=== PATIENT | female | born 1970 | race Caucasian/White ===

== ENCOUNTER 2016-06-03 17:08 | Emergency (ER) | payer OTHER ==
[2016-06-03] MEDS ORDERED: Sodium Chloride 0.9% 1000 ML 1,000 ML IV STA (17:47)
[2016-06-03] MEDS ORDERED: Hydromorphone 1 mg/ml Ampule IV ONE ×2 (17:47→19:48)
[2016-06-03] MEDS ORDERED: BENADRYL 50 MG/ML IV ONE (17:47)
[2016-06-03] MEDS ORDERED: BENADRYL 50 MG/ML ONE (17:52)
[2016-06-03] MEDS ORDERED: Hydromorphone 1 mg/ml Ampule ONE ×2 (17:53→19:49)
[2016-06-03] MEDS ORDERED: Sodium Chloride 0.9% 1000 ML 1,000 ML ONE (17:53)
--- NOTE | 2016-06-03 17:53 | ERPHSYRPT ---
- History of Present Illness Time Seen by Provider: 06/03/16 17:42 Source: patient Patient Subjective Stated Complaint: rt lower back pain sicne last . Triage Nursing Assessment: states has radiating rt lower back pain to rt uper buttocks since last . went to [facility] last thrusday and had kub yesterday. same pain with no increase or decrease. denies pain with urination. normal bm today. has hx of kidney stones. normal oral intake. pain worse with movement and better lying flat Physician History: CC: right flank pain Hx: 46 y/o patient of Dr Steven. She has right flank pain. Hx of prior renal stone disease. She has right flank pain, sharp for one week. Saw Dr Steven and had neg KUB, started bactrim and naproxen without relief. States not as has Mirena IUD. No fever, vomiting. Allergies/Adverse Reactions: Penicillins Allergy (Verified 06/03/16 17:33) codeine Adverse Reaction (Verified 06/03/16 17:33) Vomiting Home Medications: Sitagliptin Phos/Metformin HCl [Janumet 50-500 mg Tablet] 1 each PO BID [History] Cyclobenzaprine HCl [Flexeril] 5 mg PO BID 06/03/16 [History] Naproxen 500 mg PO BID 06/03/16 [History] Smz/Tmp Ds Tablet [Bactrim Ds Tablet] 1 udtab PO BID 06/03/16 [History] Hx Tetanus, Diphtheria Vaccination/Date Given: Yes Hx Influenza Vaccination/Date Given: No Hx Pneumococcal Vaccination/Date Given: No Immunizations Up to Date: Yes - Review of Systems Constitutional: No Fever, No Chills Eyes: No Symptoms Ears, Nose, & Throat: No Symptoms Respiratory: No Cough, No Dyspnea Cardiac: No Chest Pain Abdominal/Gastrointestinal: No Abdominal Pain, No Nausea, No Vomiting Genitourinary Symptoms: Flank Pain (right), No Dysuria, No Hematuria Skin: No Rash Neurological: No Headache All Other Systems: Reviewed and Negative - Past Medical History Pertinent Past Medical History: Yes Cardiac History: Hypertension Endocrine Medical History: Diabetes Type II GI Medical History: Other History: Other Other Medical History: kidney stones - Past Surgical History Past Surgical History: Yes Female Surgical History: Section - Social History Smoking Status: Never smoker Exposure to second hand smoke: Yes Drug Use: none Patient Lives Alone: No - Female History Hx Last Menstrual Period: 3 weeks Hx Now: No - Nursing Vital Signs Nursing Vital Signs: Initial Vital Signs Temperature 98.4 F Temperature Source Oral Pulse Rate 69 Respiratory Rate 16 Blood Pressure [Right Arm] 127/60 Pain Intensity 1 - Physical Exam General Appearance: alert Eye Exam: PERRL/EOMI Ears, Nose, Throat Exam: normal ENT inspection, moist mucous membranes Neck Exam: normal inspection, non-tender, supple Respiratory Exam: normal breath sounds Cardiovascular Exam: regular rate/rhythm, No murmur Gastrointestinal/Abdomen Exam: soft, No tenderness, No distention Back Exam: normal inspection, normal range of motion, CVA tenderness (right) Extremity Exam: normal inspection, normal range of motion Neurologic Exam: alert, oriented x 3, cooperative, self pay specialist II-XII nml as tested, sensation nml, No motor deficits Skin Exam: warm, dry, No rash SpO2 Interpretation: normal SpO2: 96 - Course Nursing assessment & vital signs reviewed: Yes Ordered Tests: Active Orders 24 hr Category Date Time Status Clean Catch Urine Specimen STAT Care 06/03/16 17:47 Active IV Insertion STAT Care 06/03/16 17:47 Active ABDOMEN AND PELVIS W/0 CONTRAS [CT] Stat Exams 06/03/16 17:48 Taken CBC W DIFF Stat Lab 06/03/16 18:18 Completed CMP Stat Lab 06/03/16 18:18 Completed HCG QUALITATIVE,SERUM Stat Lab 06/03/16 18:18 Completed UA W/ MICROSCOPIC Stat Lab 06/03/16 18:18 Completed Medication Summary Discontinued Medications Generic Name Dose Route Start Last Admin Trade Name Purnima PRN Reason Stop Dose Admin Diphenhydramine HCl 25 mg 06/03/16 17:47 06/03/16 17:55 Benadryl 50 Mg/Ml IV 06/03/16 17:48 25 mg STAT ONE Administration Diphenhydramine HCl Confirm 06/03/16 17:52 Benadryl 50 Mg/Ml Administered 06/03/16 17:53 Dose 50 mg .ROUTE .STK-MED ONE Hydromorphone HCl 1 mg 06/03/16 17:47 06/03/16 17:55 Hydromorphone 1 Mg/Ml Ampule IV 06/03/16 17:48 1 mg STAT ONE Administration Hydromorphone HCl Confirm 06/03/16 17:53 Hydromorphone 1 Mg/Ml Ampule Administered 06/03/16 17:54 Dose 1 mg .ROUTE .STK-MED ONE Hydromorphone HCl 1 mg 06/03/16 19:48 06/03/16 19:50 Hydromorphone 1 Mg/Ml Ampule IV 06/03/16 19:49 1 mg STAT ONE Administration Hydromorphone HCl Confirm 06/03/16 19:49 Hydromorphone 1 Mg/Ml Ampule Administered 06/03/16 19:50 Dose 1 mg .ROUTE .STK-MED ONE Sodium Chloride 1,000 mls @ 999 mls/hr 06/03/16 17:47 06/03/16 17:55 Sodium Chloride 0.9% 1000 Ml IV 06/03/16 18:47 999 mls/hr .Q1H1M STA Administration Sodium Chloride Confirm 06/03/16 17:53 Sodium Chloride 0.9% 1000 Ml Administered 06/03/16 17:54 Dose 1,000 mls @ ud .ROUTE .STK-MED ONE Ketorolac Tromethamine 30 mg 06/03/16 19:48 06/03/16 19:50 Toradol 30 Mg Injection IV 06/03/16 19:49 30 mg STAT ONE Administration Ketorolac Tromethamine Confirm 06/03/16 19:49 Toradol 30 Mg Injection Administered 06/03/16 19:50 Dose 30 mg .ROUTE .STK-MED ONE Lab/Rad Data: Laboratory Result Diagrams 06/03/16 18:18 06/03/16 18:18 Laboratory Results 06/03/16 06/03/16 06/03/16 Range/Units 18:18 18:18 18:18 WBC (4.0-10.5) K/mm3 RBC (4.1-5.4) M/mm3 Hgb (12.0-16.0) gm/dl Hct (35-47) % MCV (78-100) fl MCH (26-32) pg MCHC (32-36) g/dl RDW (11.5-14.0) % Plt Count (150-450) K/mm3 MPV (6-9.5) fl Gran % (36.0-66.0) % Lymphocytes % (24.0-44.0) % Monocytes % (0.0-12.0) % Eosinophils % (0.00-5.0) % Basophils % (0.0-0.4) % Basophils # (0-0.4) Sodium 139 (136-145) mEq/L Potassium 4.3 (3.5-5.1) mEq/L Chloride 105 (98-107) mEq/L Carbon Dioxide 21.6 (21-32) mEq/L Anion Gap 16.8 H (5-15) MEQ/L BUN 22 H (9-20) mg/dL Creatinine 1.10 (0.55-1.30) mg/dl Estimated GFR 57 ML/MIN Glucose 107 (70-110) MG/DL Calcium 8.2 L (8.5-10.1) mg/dL Total Bilirubin 0.2 (0.2-1.0) mg/dL AST 19 (15-37) U/L ALT 23 (12-78) U/L Alkaline Phosphatase 72 (46-116) U/L Serum Total Protein 6.9 (6.4-8.2) gm/dL Albumin 3.6 (3.4-5.0) g/dL Serum , Qual NEGATIVE (Negative) Ur Collection Type CCMS Urine Color YELLOW (YELLOW) Urine Appearance CLEAR (CLEAR) Urine pH 5.5 (5-6) Ur Specific [place] 1.025 (1.005-1.025) Urine Protein NEGATIVE (Negative) Urine Glucose (UA) NEGATIVE (NEGATIVE) mg/dL Urine Ketones NEGATIVE (NEGATIVE) Urine Nitrite NEGATIVE (NEGATIVE) Urine Bilirubin NEGATIVE (NEGATIVE) Urine Urobilinogen 0.2 (0-1) mg/dL Urine WBC (Auto) NEGATIVE (NEGATIVE) Urine RBC (Auto) SMALL (0-5) Josue/ul Urine Microscopic RBC 0-2 (0-2) /HPF Urine Microscopic WBC 0-2 (0-5) /HPF Ur Epithelial Cells FEW (FEW) /HPF Urine Bacteria FEW (NEGATIVE) /HPF Specimen Received 06-03-16 1831 06/03/16 Range/Units 18:18 WBC 6.5 (4.0-10.5) K/mm3 RBC 4.21 (4.1-5.4) M/mm3 Hgb 12.4 (12.0-16.0) gm/dl Hct 37.4 (35-47) % MCV 88.8 (78-100) fl MCH 29.5 (26-32) pg MCHC 33.2 (32-36) g/dl RDW 12.6 (11.5-14.0) % Plt Count 257 (150-450) K/mm3 MPV 9.7 H (6-9.5) fl Gran % 59.1 (36.0-66.0) % Lymphocytes % 29.7 (24.0-44.0) % Monocytes % 7.3 (0.0-12.0) % Eosinophils % 3.6 (0.00-5.0) % Basophils % 0.3 (0.0-0.4) % Basophils # 0.02 (0-0.4) Sodium (136-145) mEq/L Potassium (3.5-5.1) mEq/L Chloride (98-107) mEq/L Carbon Dioxide (21-32) mEq/L Anion Gap (5-15) MEQ/L BUN (9-20) mg/dL Creatinine (0.55-1.30) mg/dl Estimated GFR ML/MIN Glucose (70-110) MG/DL Calcium (8.5-10.1) mg/dL Total Bilirubin (0.2-1.0) mg/dL AST (15-37) U/L ALT (12-78) U/L Alkaline Phosphatase (46-116) U/L Serum Total Protein (6.4-8.2) gm/dL Albumin (3.4-5.0) g/dL Serum , Qual (Negative) Ur Collection Type Urine Color (YELLOW) Urine Appearance (CLEAR) Urine pH (5-6) Ur Specific [place] (1.005-1.025) Urine Protein (Negative) Urine Glucose (UA) (NEGATIVE) mg/dL Urine Ketones (NEGATIVE) Urine Nitrite (NEGATIVE) Urine Bilirubin (NEGATIVE) Urine Urobilinogen (0-1) mg/dL Urine WBC (Auto) (NEGATIVE) Urine RBC (Auto) (0-5) Josue/ul Urine Microscopic RBC (0-2) /HPF Urine Microscopic WBC (0-5) /HPF Ur Epithelial Cells (FEW) /HPF Urine Bacteria (NEGATIVE) /HPF Specimen Received - Progress Progress Note: 06/03/16 17:52 Will get to assess for renal stone disease. 06/03/16 19:55 CT abd/pelvis: yeyo 7:50 PM 06/03/2016: Compared to 12/13/14. Negative renal stone or evidence for obstructive uropathy. Mild fecal stasis w/o obstruction. Normal appy. New IUD appears low lying in uterus w/ R tip extending to edge of myometrium. yeyo 7:51 PM 06/03/2016: Also incidental 12.7cm splenomegaly & fatty replaced pancreas. 06/03/16 19:[address] with pt and family. She plans to see Dr Man tomorrow. MEdicated here for pain. Will release with instructions. Counseled pt/family regarding: lab results, diagnosis, need for follow-up, rad results - Departure Time of Disposition: 20:00 Departure Disposition: Home Clinical Impression: Right flank pain Condition: Stable Critical Care Time: No Referrals: HILTON STEVEN MD [Primary Care Provider] - Instructions: Abdominal Pain-Adult, Kidney Stones Additional Instructions: ABDOMINAL PAIN 1. There are several different causes for abdominal pain, some of which may not be able to be identified on initial examination. 2. The important thing to remember is that bodily functions can change in a short period of time. If you notice any of the following symptoms, return to the emergency department or consult your doctor immediately: A. Worsening pain or no improvement in the next 12 hours. B. Increasing, severe abdominal pain C. Blood in stool D. Black stools E. Persistent vomiting F. Fever or chills or other symptoms No driving tonite. See Dr Steven tomorrow as planned. Return for problems or concerns. Continue naproxen as prescribed.
[2016-06-03 18:20] LABS: BASOPHIL % 0.3 % (0.0-0.4); Eosinophil % 3.6 % (0.00-5.0); Granulocytes % 59.1 % (36.0-66.0); Lymphocytes % 29.7 % (24.0-44.0); Mean Cell Volume 88.8 fl (78-100); Mean Corpuscular Hemoglobin 29.5 pg (26-32); Mean Platelet Volume 9.7 fl (6-9.5); Monocytes % 7.3 % (0.0-12.0); Platelet Count 257 K/mm3 (150-450); Red Blood Count 4.21 M/mm3 (4.1-5.4); Red Cell Distribution Width 12.6 % (11.5-14.0); White Blood Count 6.5 K/mm3 (4.0-10.5)
[2016-06-03 18:53] LABS: COMPLETE URINE MICROSCOPIC? YES; Collection Type CCMS; Ph 5.5 (5-6)
[2016-06-03 18:54] LABS: Bacteria FEW /HPF (NEGATIVE); Epithelial Cells FEW /HPF (FEW); WBC 0-2 /HPF (0-5)
[2016-06-03 18:57] LABS: ALBUMIN 3.6 g/dL (3.4-5.0); ANION GAP 16.8 MEQ/L (5-15); BILIRUBIN,TOTAL 0.2 mg/dL (0.2-1.0); Carbon Dioxide 21.6 mEq/L (21-32); Potassium 4.3 mEq/L (3.5-5.1); Total Protein 6.9 gm/dL (6.4-8.2)
[2016-06-03] MEDS ORDERED: TORAdol 30 mg Injection IV ONE (19:48)
[2016-06-03] MEDS ORDERED: TORAdol 30 mg Injection ONE (19:49)
[2016-06-03 20:19] VITALS: BP 129/70; PULSE 70; O2SAT 99
--- NOTE | 2016-06-04 08:40 | XRAY ---
Indication: Right flank pain. Multiple contiguous axial images obtained through the abdomen and pelvis without contrast as ordered. Comparison: December 13, 2014. Lung bases demonstrates minimal bibasilar dependent atelectasis. Heart is not enlarged. Noncontrasted stomach and bowel loops appear nonobstructed. Mild scattered colonic fecal debris throughout. Normal air-filled appendix. No free fluid/air. A few calcified splenic granulomas and 12.7 cm splenomegaly. Pancreas again fatty-replaced. There is now a uterine IUD that appears low lying. The right tip of the IUD extends to the edge of the myometrium. Remaining liver, gallbladder, pancreas, spleen, adrenal glands, kidneys, ureters, bladder, uterus, and aorta appear unremarkable for noncontrast exam. Osseous structures intact. Impression: 1. Fecal stasis without obstruction. 2. No acute intra-abdominal/pelvic abnormalities on this noncontrast exam. 3. New IUD in situ. Suspect suboptimal position. 4. Splenomegaly. CT DI 23.05
== END 2016-06-03 20:19 | disposition home or self-care (01) ==
LOC: ED 17:08
DX: R10.9 Unspecified abdominal pain (principal); R16.1 Splenomegaly, not elsewhere classified; M54.5 Low back pain; I10 Essential (primary) hypertension; E11.9 Type 2 diabetes mellitus without complications; Z79.84 Long term (current) use of oral hypoglycemic drugs; Z79.899 Other long term (current) drug therapy
CPT/HCPCS: 36000; 36415; 74176; 80053; 81000; 84703; 85025; 96360; 96374; 96375; 96376; 99284; J1170; J1200; J1885

== ENCOUNTER 2017-07-17 23:32 | Emergency (ER) | payer OTHER ==
[2017-07-17] MEDS ORDERED: Sodium Chloride 0.9% 1000 ML 1,000 ML IV STA (23:42)
[2017-07-17] MEDS ORDERED: solu-CORTEF 100MG IV ONE (23:42)
[2017-07-17] MEDS ORDERED: DUONEB 0.5-3 MG/3 ml Neb IH ONE ×2 (23:42→23:45)
[2017-07-17] MEDS ORDERED: Pepcid 20 MG VIAL IV ONE ×2 (23:42→23:47)
[2017-07-17] MEDS ORDERED: BENADRYL 50 MG/ML IV ONE (23:42)
[2017-07-17 23:47] VITALS: BP 183/85; PULSE 76
[2017-07-17] MEDS ORDERED: solu-CORTEF 100MG ONE (23:47)
[2017-07-17] MEDS ORDERED: Sodium Chloride 0.9% 1000 ML 1,000 ML ONE (23:47)
[2017-07-17] MEDS ORDERED: BENADRYL 50 MG/ML ONE (23:47)
[2017-07-18 00:05] VITALS: O2SAT 99
--- NOTE | 2017-07-18 00:05 | ERPHSYRPT ---
- History of Present Illness Time Seen by Provider: 07/18/17 00:00 Source: patient Exam Limitations: no limitations Patient Subjective Stated Complaint: patient having allergic reaction to exposure , hives all over her body Triage Nursing Assessment: pt alert nad oirentedx3, hives on face kneck and arms , able to ambulate , lung sounds stridor present , audible wheezing Physician History: patient having allergic reaction to exposure , hives all over her body, unknown exposure Timing/Duration: today Severity: moderate Associated Symptoms: shortness of breath, rash Allergies/Adverse Reactions: Penicillins Allergy (Verified 06/03/16 17:33) Sulfa (Sulfonamide Antibiotics) Allergy (Verified 07/17/17 23:37) codeine Adverse Reaction (Verified 06/03/16 17:33) Vomiting Home Medications: Sitagliptin Phos/Metformin HCl [Janumet 50-500 mg Tablet] 1 each PO BID [History] Cyclobenzaprine HCl [Flexeril] 5 mg PO BID 06/03/16 [History] Naproxen 500 mg PO BID 06/03/16 [History] Smz/Tmp Ds Tablet [Bactrim Ds Tablet] 1 udtab PO BID 06/03/16 [History] Hx Tetanus, Diphtheria Vaccination/Date Given: Yes Hx Influenza Vaccination/Date Given: Yes Hx Pneumococcal Vaccination/Date Given: Yes Immunizations Up to Date: Yes - Review of Systems Constitutional: No Fever, No Chills Eyes: No Symptoms Ears, Nose, & Throat: No Symptoms Respiratory: Wheezing, No Cough, No Dyspnea Cardiac: No Chest Pain, No Edema, No Syncope Abdominal/Gastrointestinal: No Abdominal Pain, No Nausea, No Vomiting, No Diarrhea Genitourinary Symptoms: No Dysuria Musculoskeletal: No Back Pain, No Neck Pain Skin: Rash Neurological: No Dizziness, No Focal Weakness, No Sensory Changes Psychological: No Symptoms Endocrine: No Symptoms All Other Systems: Reviewed and Negative - Past Medical History Pertinent Past Medical History: Yes Cardiac History: Hypertension Endocrine Medical History: Diabetes Type II GI Medical History: Other History: Other Other Medical History: kidney stones - Past Surgical History Past Surgical History: Yes Female Surgical History: Section - Social History Smoking Status: Never smoker Exposure to second hand smoke: Yes Drug Use: none Patient Lives Alone: No - Female History Hx Now: No - Nursing Vital Signs Nursing Vital Signs: Initial Vital Signs Temperature 97.5 F 07/17/17 23:32 Pulse Rate 76 07/17/17 23:32 Respiratory Rate 18 07/17/17 23:32 Blood Pressure 183/85 07/17/17 23:32 O2 Sat by Pulse Oximetry 98 07/17/17 23:32 Pain Scale Pain Intensity 0 - Physical Exam General Appearance: no apparent distress, alert Eye Exam: PERRL/EOMI, eyes nml inspection Ears, Nose, Throat Exam: normal ENT inspection, TMs normal, pharynx normal, moist mucous membranes Neck Exam: normal inspection, non-tender, supple, full range of motion Respiratory Exam: normal breath sounds, wheezing, No respiratory distress Cardiovascular Exam: regular rate/rhythm, normal heart sounds, normal peripheral pulses Gastrointestinal/Abdomen Exam: soft, normal bowel sounds, No tenderness, No mass Back Exam: normal inspection, normal range of motion, No CVA tenderness, No vertebral tenderness Extremity Exam: normal inspection, normal range of motion, pelvis stable Neurologic Exam: alert, oriented x 3, cooperative, normal mood/affect, nml cerebellar function, nml station & gait, sensation nml, No motor deficits Skin Exam: normal color, warm, dry, No rash Lymphatic Exam: No adenopathy SpO2: 99 Oxygen Delivery: Room Air - Course Nursing assessment & vital signs reviewed: Yes Ordered Tests: Active Orders 24 hr Category Date Time Status Oxygen-ED Only NASAL CANNULA 2 lpm Care 07/17/17 23:42 Active Respiratory Nebulizer STAT RT 07/17/17 23:42 Completed Medication Summary Generic Name Dose Route Start Last Admin Trade Name Freq PRN Reason Stop Dose Admin Sodium Chloride 1,000 mls @ 999 mls/hr 07/17/17 23:42 07/17/17 23:53 Sodium Chloride 0.9% 1000 Ml IV 07/18/17 00:42 999 mls/hr .Q1H1M STA Administration Discontinued Medications Generic Name Dose Route Start Last Admin Trade Name Freq PRN Reason Stop Dose Admin Albuterol/Ipratropium 3 ml 07/17/17 23:42 07/17/17 23:49 Duoneb 0.5-3 Mg/3 Ml Neb IH 07/17/17 23:43 3 ml STAT ONE Administration Albuterol/Ipratropium Confirm 07/17/17 23:45 Duoneb 0.5-3 Mg/3 Ml Neb Administered 07/17/17 23:46 Dose 3 ml IH .STK-MED ONE Diphenhydramine HCl 25 mg 07/17/17 23:42 07/17/17 23:53 Benadryl 50 Mg/Ml IV 07/17/17 23:43 25 mg STAT ONE Administration Diphenhydramine HCl Confirm 07/17/17 23:47 Benadryl 50 Mg/Ml Administered 07/17/17 23:48 Dose 50 mg .ROUTE .STK-MED ONE Famotidine 20 mg 07/17/17 23:42 07/17/17 23:53 Pepcid 20 Mg Vial IV 07/17/17 23:43 20 mg STAT ONE Administration Famotidine Confirm 07/17/17 23:47 Pepcid 20 Mg Vial Administered 07/17/17 23:48 Dose 20 mg IV .STK-MED ONE Hydrocortisone Sodium Succinate 100 mg 07/17/17 23:42 07/17/17 23:53 Solu-Cortef 100mg IV 07/17/17 23:43 100 mg STAT ONE Administration Hydrocortisone Sodium Succinate Confirm 07/17/17 23:47 Solu-Cortef 100mg Administered 07/17/17 23:48 Dose 100 mg .ROUTE .STK-MED ONE Sodium Chloride Confirm 07/17/17 23:47 Sodium Chloride 0.9% 1000 Ml Administered 07/17/17 23:48 Dose 1,000 mls @ ud .ROUTE .STK-MED ONE - Progress Progress: improved Counseled pt/family regarding: diagnosis, need for follow-up - Departure Time of Disposition: 00:05 Departure Disposition: Home Clinical Impression: Allergic reaction Qualifiers: Encounter type: initial encounter Qualified Code(s): T78.40XA - Allergy, unspecified, initial encounter Condition: Stable Critical Care Time: No Referrals: HILTON STEVEN MD [Primary Care Provider] - Instructions: Hives, Anaphylaxis, Adverse Drug Reactions, Adult (DC) Additional Instructions: ALLERGIC REACTION 1. There are several different reasons for the cause of an allergic reaction. If you are aware of a trigger, continue to avoid the problem. 2. If at any time you experience any of these signs or symptoms, you should seek medical attention immediately: A. Sudden onset of rash B. Wheezing C. Shortness of breath D. Thick tongue E. Dizziness 3. If you experience an allergic reaction and are treated in the emergency department, you should follow up with your family physician in order to determine how you will need to handle your allergy. Forms: Work/School Release Form Prescriptions: Methylprednisolone Packet [Medrol Dosepack] 4 mg PO UD #30 packet Famotidine 20 mg [Pepcid 20 MG] 20 mg PO BID #20 tablet
== END 2017-07-18 00:20 | disposition home or self-care (01) ==
LOC: ED 23:32
DX: T78.40XA Allergy, unspecified, initial encounter (principal)
CPT/HCPCS: 36000; 94640; 96360; 96374; 96375; 99283; 99284; J1200; J1720; A9270-GY

== ENCOUNTER 2017-12-04 05:28 | Emergency (ER) | payer SELFPAY ==
[2017-12-04] MEDS ORDERED: Zofran 4 MG/2 ML VIAL IV ONE (05:47)
[2017-12-04] MEDS ORDERED: Sodium Chloride 0.9% 1000 ML 1,000 ML IV STA ×2 (05:47→06:47)
--- NOTE | 2017-12-04 05:47 | ERPHSYRPT ---
- History of Present Illness Time Seen by Provider: 12/04/17 05:44 Source: patient, family Exam Limitations: no limitations Patient Subjective Stated Complaint: pt is alert and oriented. pt is ambulatory with a steady gait. pt states she has had nausea, vomiting, diarrhea for 2 days. pt mucous membranes are dry. bowel sounds present x4. Triage Nursing Assessment: see above Physician History: The patient is a 47-year-old female with family complaining of vomiting and diarrhea for 2 days. She was beginning to get better when she went to bed but she woke up with diarrhea once again. She is dizzy when she stands up. Her mouth is dry. She has no abdominal pain. Her past medical history is significant for diabetes. Timing/Duration: day(s) (2), constant, gradual onset Severity: moderate Modifying Factors: Improves With: nothing Associated Symptoms: nausea, vomiting, other (diarrhea) Allergies/Adverse Reactions: Penicillins Allergy (Verified 06/03/16 17:33) Sulfa (Sulfonamide Antibiotics) Allergy (Verified 07/17/17 23:37) codeine Adverse Reaction (Verified 06/03/16 17:33) Vomiting Home Medications: Sitagliptin Phos/Metformin HCl [Janumet 50-500 mg Tablet] 1 each PO BID [History] Cyclobenzaprine HCl [Flexeril] 5 mg PO BID 06/03/16 [History] Naproxen 500 mg PO BID 06/03/16 [History] Hx Tetanus, Diphtheria Vaccination/Date Given: Yes Hx Influenza Vaccination/Date Given: Yes Hx Pneumococcal Vaccination/Date Given: Yes Immunizations Up to Date: Yes - Review of Systems Constitutional: No Fever, No Chills Eyes: No Symptoms Ears, Nose, & Throat: No Symptoms Respiratory: No Cough, No Dyspnea Cardiac: No Chest Pain, No Edema, No Syncope Abdominal/Gastrointestinal: Nausea, Vomiting, Diarrhea Genitourinary Symptoms: No Dysuria Musculoskeletal: No Back Pain, No Neck Pain Skin: No Rash Neurological: Dizziness Psychological: No Symptoms Endocrine: No Symptoms Hematologic/Lymphatic: No Symptoms Immunological/Allergic: No Symptoms All Other Systems: Reviewed and Negative - Past Medical History Pertinent Past Medical History: Yes Cardiac History: Hypertension Endocrine Medical History: Diabetes Type II GI Medical History: Other History: Other Other Medical History: kidney stones - Past Surgical History Past Surgical History: Yes Female Surgical History: Section - Social History Smoking Status: Never smoker Exposure to second hand smoke: No Drug Use: none Patient Lives Alone: No - Female History Hx Now: No - Nursing Vital Signs Nursing Vital Signs: Initial Vital Signs Temperature 97.5 F 12/04/17 05:28 Pulse Rate 81 12/04/17 05:28 Respiratory Rate 16 12/04/17 05:28 Blood Pressure 147/57 12/04/17 05:28 O2 Sat by Pulse Oximetry 97 12/04/17 05:28 Pain Scale Pain Intensity 0 - Physical Exam General Appearance: no apparent distress, alert Eye Exam: PERRL/EOMI, eyes nml inspection Ears, Nose, Throat Exam: dry mucous membranes Neck Exam: normal inspection, non-tender, supple, full range of motion Respiratory Exam: normal breath sounds, lungs clear, No respiratory distress Cardiovascular Exam: regular rate/rhythm, normal heart sounds, normal peripheral pulses Gastrointestinal/Abdomen Exam: soft, normal bowel sounds, No tenderness, No mass Pelvic Exam: not done Rectal Exam: not done Back Exam: normal inspection, normal range of motion, No CVA tenderness, No vertebral tenderness Extremity Exam: normal inspection, normal range of motion, pelvis stable Neurologic Exam: alert, oriented x 3, cooperative, normal mood/affect, nml cerebellar function, nml station & gait, sensation nml, No motor deficits Skin Exam: normal color, warm, dry, No rash Lymphatic Exam: No adenopathy SpO2 Interpretation: normal SpO2: 97 Oxygen Delivery: Room Air Ordered Tests: Active Orders 24 hr Category Date Time Status IV Insertion STAT Care 12/04/17 05:47 Active BMP Stat Lab 12/04/17 05:47 Completed CBC W DIFF Stat Lab 12/04/17 05:47 Completed Lactic Acid Stat Lab 12/04/17 05:50 Completed Medication Summary Generic Name Dose Route Start Last Admin Trade Name Freq PRN Reason Stop Dose Admin Sodium Chloride 1,000 mls @ 999 mls/hr 12/04/17 05:47 12/04/17 05:54 Sodium Chloride 0.9% 1000 Ml IV 12/04/17 06:47 999 mls/hr .Q1H1M STA Administration Discontinued Medications Generic Name Dose Route Start Last Admin Trade Name Freq PRN Reason Stop Dose Admin Sodium Chloride Confirm 12/04/17 05:51 Sodium Chloride 0.9% 1000 Ml Administered 12/04/17 05:52 Dose 1,000 mls @ ud .ROUTE .STK-MED ONE Ondansetron HCl 4 mg 12/04/17 05:47 12/04/17 05:54 Zofran 4 Mg/2 Ml Vial IV 12/04/17 05:48 4 mg STAT ONE Administration Ondansetron HCl Confirm 12/04/17 05:51 Zofran 4 Mg/2 Ml Vial Administered 12/04/17 05:52 Dose 4 mg .ROUTE .STK-MED ONE Lab/Rad Data: Laboratory Result Diagrams 12/04/17 05:47 12/04/17 05:47 Laboratory Results 12/04/17 12/04/17 12/04/17 Range/Units 05:50 05:47 05:47 WBC 9.9 (4.0-10.5) K/mm3 RBC 4.56 (4.1-5.4) M/mm3 Hgb 13.7 (12.0-16.0) gm/dl Hct 40.4 (35-47) % MCV 88.6 (78-100) fl MCH 30.0 (26-32) pg MCHC 33.9 (32-36) g/dl RDW 12.5 (11.5-14.0) % Plt Count 278 (150-450) K/mm3 MPV 9.5 (6-9.5) fl Gran % 79.7 H (36.0-66.0) % Eos # (Auto) 0.25 (0-0.5) Absolute Lymphs (auto) 1.20 (1.0-4.6) Absolute Monos (auto) 0.54 (0.0-1.3) Lymphocytes % 12.2 L (24.0-44.0) % Monocytes % 5.5 (0.0-12.0) % Eosinophils % 2.5 (0.00-5.0) % Basophils % 0.1 (0.0-0.4) % Absolute Granulocytes 7.87 H (1.4-6.9) Basophils # 0.01 (0-0.4) Sodium 139 (137-145) mmol/L Potassium 4.4 (3.5-5.1) mmol/L Chloride 108 H (98-107) mmol/L Carbon Dioxide 22 (22-30) mmol/L Anion Gap 13.3 (5-15) MEQ/L BUN 20 H (7-17) mg/dL Creatinine 0.75 (0.52-1.04) mg/dL Estimated GFR > 60.0 ML/MIN Glucose 129 H (74-106) mg/dL Lactic Acid 0.9 (0.4-2.0) Calcium 8.6 (8.4-10.2) mg/dL - Departure Time of Disposition: 06:47 Departure Disposition: Home Clinical Impression: Gastroenteritis Condition: Stable Critical Care Time: No Referrals: HILTON STEVEN MD [Primary Care Provider] - Additional Instructions: You have gastroenteritis. You were given Zofran 4 mg and fluids by IV in the ER. You were given a work excuse for today. Take Zofran 4 mg ODT every 6 hours as needed for vomiting and nausea. Follow-up with your primary medical doctor as needed. Prescriptions: Ondansetron ODT 4 MG [Zofran Odt 4 mg] 1 tab PO Q6H PRN PRN #10 tab.rapdis PRN Reason: Nausea/Vomiting
[2017-12-04] MEDS ORDERED: Zofran 4 MG/2 ML VIAL ONE (05:51)
[2017-12-04] MEDS ORDERED: Sodium Chloride 0.9% 1000 ML 1,000 ML ONE ×2 (05:51→06:50)
[2017-12-04 05:56] LABS: BASOPHIL % 0.1 % (0.0-0.4); Basophil (Absolute #) 0.01 (0-0.4); Eosinophil % 2.5 % (0.00-5.0); Eosinophil (Absolute #) 0.25 (0-0.5); Granulocyte Absolute (ANC) 7.87 (1.4-6.9); Granulocytes % 79.7 % (36.0-66.0); Hematocrit 40.4 % (35-47); Hemoglobin 13.7 gm/dl (12.0-16.0); Lymphocytes % 12.2 % (24.0-44.0); Mean Cell Volume 88.6 fl (78-100); Mean Corpuscular Hgb Concent. 33.9 g/dl (32-36); Mean Platelet Volume 9.5 fl (6-9.5); Monocyte (Absolute #) 0.54 (0.0-1.3); Monocytes % 5.5 % (0.0-12.0); Platelet Count 278 K/mm3 (150-450); Red Blood Count 4.56 M/mm3 (4.1-5.4); Red Cell Distribution Width 12.5 % (11.5-14.0); White Blood Count 9.9 K/mm3 (4.0-10.5)
[2017-12-04 06:33] LABS: ANION GAP 13.3 MEQ/L (5-15); BLOOD UREA NITROGEN 20 mg/dL (7-17); CHLORIDE 108 mmol/L (98-107); Calcium 8.6 mg/dL (8.4-10.2); Carbon Dioxide 22 mmol/L (22-30); Creatinine 1 0.75 mg/dL (0.52-1.04); Glucose 129 mg/dL (74-106); Potassium 4.4 mmol/L (3.5-5.1); SODIUM 139 mmol/L (137-145)
[2017-12-04 08:19] VITALS: BP 121/70; PULSE 73; O2SAT 98
== END 2017-12-04 08:25 | disposition home or self-care (01) ==
LOC: ED 05:28
DX: K52.9 Noninfective gastroenteritis and colitis, unspecified (principal); R42 Dizziness and giddiness; Z79.899 Other long term (current) drug therapy; E11.9 Type 2 diabetes mellitus without complications; Z79.84 Long term (current) use of oral hypoglycemic drugs
CPT/HCPCS: 36000; 36415; 80048; 82962; 83605; 85025; 96360; 96374; 99284; J2405

== ENCOUNTER 2017-12-22 20:35 | Emergency (ER) | payer OTHER ==
[2017-12-22 20:46] VITALS: PULSE 85
--- NOTE | 2017-12-22 20:53 | ERPHSYRPT ---
- History of Present Illness Source: patient, family Exam Limitations: no limitations Patient Subjective Stated Complaint: Pt arrives to ER with c/o head injury stating approx 1940 was hit in left side of head by a falling board. Denies LOC. Became dizzy upon standing up after having fallen down. Now has throbbing pain in left side of head where board hit. Pt states room is spinning and is worse to open eyes Triage Nursing Assessment: see above Physician History: 47 y/o white female presents with left head injury. 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 fell down when she was hit by a falling wooden board when opening her horse feed door. 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 on arrival pt c/o headache, nause and dizziness. dizziness worse with eyes open Occurred: just prior to arrival Severity: mild Head Injury Location: temporal (left) Method of Injury: other (wooden board fell from above onto her left head) Loss of Consciousness: no loss of consciousness, dazed Associated Symptoms: nausea, headaches, other (dizziness), No vomiting, No shortness of breath, No syncope Allergies/Adverse Reactions: Penicillins Allergy (Verified 12/22/17 20:46) Sulfa (Sulfonamide Antibiotics) Allergy (Verified 12/22/17 20:46) codeine Adverse Reaction (Verified 12/22/17 20:46) Vomiting Home Medications: Sitagliptin Phos/Metformin HCl [Janumet 50-500 mg Tablet] 1 each PO BID [History] Amitriptyline HCl 25 mg [Elavil 25 mg] 25 mg PO 12/22/17 [History] Clonazepam 0.5 mg [Klonopin 0.5 MG] 0.5 mg PO BID 12/22/17 [History] Hx Tetanus, Diphtheria Vaccination/Date Given: Yes Hx Influenza Vaccination/Date Given: Yes Hx Pneumococcal Vaccination/Date Given: Yes - Review of Systems Constitutional: No Symptoms, No Fever, No Chills Eyes: No Symptoms, No Discharge, No Eye Pain Ears, Nose, & Throat: No Symptoms, No Ear Pain Respiratory: No Symptoms, No Cough, No Dyspnea, No Stridor, No Wheezing Cardiac: No Symptoms, No Chest Pain, No Palpitations, No Syncope Abdominal/Gastrointestinal: Nausea, No Abdominal Pain, No Vomiting, No Diarrhea Genitourinary Symptoms: No Symptoms, No Dysuria, No Frequency, No Hematuria Musculoskeletal: No Symptoms, No Back Pain, No Neck Pain, No Deformity Skin: No Symptoms Neurological: Dizziness, Headache, No Focal Weakness, No Gait Changes, No Lethargy, No Paralysis, No Seizure, No Sensory Changes, No Speech Changes Psychological: No Symptoms, No Alcohol Abuse, No Drug Abuse, No Anxiety Endocrine: No Symptoms Hematologic/Lymphatic: No Symptoms Immunological/Allergic: No Symptoms All Other Systems: Reviewed and Negative - Past Medical History Pertinent Past Medical History: Yes Neurological History: No Pertinent History ENT History: No Pertinent History Cardiac History: No Pertinent History, Hypertension Respiratory History: No Pertinent History Endocrine Medical History: No Pertinent History, Diabetes Type II Musculoskeletal History: No Pertinent History GI Medical History: Other History: Other Psycho-Social History: No Pertinent History Female Reproductive Disorders: No Pertinent History Other Medical History: kidney stones - Past Surgical History Past Surgical History: Yes Neuro Surgical History: No Pertinent History Cardiac: No Pertinent History Respiratory: No Pertinent History Gastrointestinal: No Pertinent History Genitourinary: No Pertinent History Musculoskeletal: No Pertinent History Female Surgical History: Section - Social History Smoking Status: Never smoker Exposure to second hand smoke: No Drug Use: none Patient Lives Alone: No - Female History Hx Now: No - Nursing Vital Signs Nursing Vital Signs: Initial Vital Signs Temperature 97.8 F 12/22/17 20:39 Pulse Rate 85 12/22/17 20:39 Respiratory Rate 20 12/22/17 20:39 Blood Pressure 166/82 12/22/17 20:39 O2 Sat by Pulse Oximetry 98 12/22/17 20:39 Pain Scale Pain Intensity 6 - Artis Coma Score Best Eye Response (Cashiers): (4) open spontaneously Best Verbal Response (Artis): (5) oriented Best Motor Response (Artis): (6) obeys commands Artis Total: 15 - Physical Exam General Appearance: mild distress, alert, anxiety Head Injury: no evidence of injury, No active bleeding, No Smallwood's Sign, No contusions, No raccoon eyes, No swelling, No tenderness Eye Exam: bilateral eye: normal inspection, PERRL, EOMI ENT Exam: airway nml, hearing grossly normal, No evidence of ENT injury, No dental injury, No clear fluid (ears), No clear fluid (nose), No midface instability, No decreased hearing, No hemotympanum Neck Exam: supple, trachea midline, full range of motion, normal alignment, normal inspection, No focal neuro deficit, No muscle spasm, No paraspinous muscle tender, No pain on movement of neck, No tenderness Cardiovascular/Respiratory Exam: chest non-tender, normal breath sounds, regular rate/rhythm, heart sounds normal, no JVD, no respiratory distress Gastrointestinal/Abdominal Exam: soft, non tender, no distention, no mass, no guarding, no ecchymosis, no organomegaly, no pulsatile mass, normal bowel sounds , No guarding, No rebound, No tenderness Pelvic Exam: not done Rectal Exam: not done Back Exam: normal inspection, normal range of motion, No CVA tenderness, No vertebral tenderness Extremity Exam: non-tender, normal range of motion, normal inspection Mental Status Exam: alert, oriented x 3, cooperative criminalist Exam: normal hearing, normal speech, PERRL Coordination/Gait Exam: normal finger to nose, normal gait, normal cerebellar function Motor/Sensory Exam: no motor deficit, no sensory deficit, no pronator drift Skin Exam: normal color, warm, dry Lymphatic Exam: No adenopathy SpO2 Interpretation: normal SpO2: 98 Oxygen Delivery: Room Air Ordered Tests: Active Orders 24 hr Category Date Time Status HEAD WITHOUT CONTRAST [CT] Stat Exams 12/22/17 20:53 Taken Lab/Rad Data: ct scan head-no acute process - Progress Progress: improved, re-examined Counseled pt/family regarding: diagnosis, need for follow-up, rad results - Departure Time of Disposition: 21:54 Departure Disposition: Home Clinical Impression: Head injury Condition: Stable Critical Care Time: No Referrals: HILTON STEVEN MD [Primary Care Provider] - Additional Instructions: have family wake you up every 2 hours throughout night and morning. use tylenol and ibuprofen for pain. follow up with primary doctor tomorrow for persistent headache and nausea. drink plenty of fluids. return to ER if symptoms worsen
[2017-12-22] MEDS ORDERED: Hydromorphone 1 mg/ml Ampule IM ONE (21:52)
[2017-12-22] MEDS ORDERED: Phenergan 25 MG INJ IM ONE (21:53)
[2017-12-22] MEDS ORDERED: Hydromorphone 1 mg/ml Ampule ONE (21:55)
[2017-12-22] MEDS ORDERED: Phenergan 25 MG INJ ONE (21:55)
[2017-12-22 22:06] VITALS: BP 154/88; O2SAT 97
--- NOTE | 2017-12-23 08:43 | XRAY ---
Indication: Headache and dizziness following left head injury. Multiple contiguous axial images obtained through the head without contrast. Comparison: None Normal appearing brain parenchyma, ventricles, and bony calvarium. Partially visualized 1 cm left maxillary sinus polyp/retention cyst. Remaining visualized paranasal sinuses and mastoid air cells are clear. Impression: Normal CT head without contrast exam. Incidental left maxillary sinus polyp/retention cyst. CT DI 50.87
== END 2017-12-22 22:28 | disposition home or self-care (01) ==
LOC: ED 20:35
DX: S09.90XA Unspecified injury of head, initial encounter (principal); R42 Dizziness and giddiness; R51 Headache; R11.0 Nausea; W20.8XXA Other cause of strike by thrown, projected or falling object, initial encounter; Y93.K9 Activity, other involving animal care
CPT/HCPCS: 70450; 96372; 99284; J1170; J2550

== ENCOUNTER 2018-03-02 19:10 | Emergency (ER) | payer OTHER ==
--- NOTE | 2018-03-02 20:12 | ERPHSYRPT ---
- History of Present Illness Time Seen by Provider: 03/02/18 20:08 Historian: patient, family Exam Limitations: no limitations Patient Subjective Stated Complaint: Lower back pain/lower abdominal pain/ pelvic pain Triage Nursing Assessment: Patient ambulated back to ED and transferred self to bed. Patient A+ O X 3. Patient states she is having lower abdominal pain/pelvic stabbing/squeezing pain since yesterday causing her lower back to hurt/throb. Patient states 5 years ago she had an inflamed uterus and this is what the pain feels like. Pain 8/10. No injures or areas noted to back area or abdominal area. Bowel sounds X 4. Abdomen soft. Patient also states her menstrual cycles are irregular. Patient just finishing up with cycle. Physician History: The patient is a 47-year-old female with her complaining that she has worsening pain in the supra pubic region since yesterday. The pain sometimes makes her low back throb. She has been urinating more often than normal. It hurts to push on that area. She denies fever or chills. She denies nausea or vomiting. She took Tylenol and ibuprofen today with mild relief. Her past medical history is significant for diabetes, ovarian cysts, and uterine fibroid. The patient declines analgesia. Timing/Duration: yesterday, gradual onset, worse Activities at Onset: none Quality: aching Abdominal Pain Onset Location: suprapubic Pain Radiation: back Severity of Pain-Max: moderate Severity of Pain-Current: moderate Modifying Factors: Improves With: nothing Associated Symptoms: No diarrhea, No fatigue, No nausea, No vomiting Previous symptoms: no prior history Allergies/Adverse Reactions: Penicillins Allergy (Verified 03/02/18 19:48) Sulfa (Sulfonamide Antibiotics) Allergy (Verified 03/02/18 19:48) codeine Adverse Reaction (Verified 03/02/18 19:48) Vomiting Home Medications: Sitagliptin Phos/Metformin HCl [Janumet 50-500 mg Tablet] 1 each PO BID [History] Clonazepam 0.5 mg [Klonopin 0.5 MG] 0.5 mg PO BID 12/22/17 [History] Hx Tetanus, Diphtheria Vaccination/Date Given: No Hx Influenza Vaccination/Date Given: No Hx Pneumococcal Vaccination/Date Given: No Immunizations Up to Date: Yes - Review of Systems Constitutional: No Fever, No Chills Eyes: No Symptoms Ears, Nose, & Throat: No Symptoms Respiratory: No Cough, No Dyspnea Cardiac: No Chest Pain, No Edema, No Syncope Abdominal/Gastrointestinal: Abdominal Pain, No Nausea, No Vomiting, No Diarrhea Genitourinary Symptoms: Frequency Musculoskeletal: No Back Pain, No Neck Pain Skin: No Rash Neurological: No Dizziness, No Focal Weakness, No Sensory Changes Psychological: No Symptoms Endocrine: No Symptoms Hematologic/Lymphatic: No Symptoms Immunological/Allergic: No Symptoms All Other Systems: Reviewed and Negative - Past Medical History Pertinent Past Medical History: Yes Neurological History: No Pertinent History ENT History: No Pertinent History Cardiac History: No Pertinent History, Hypertension Respiratory History: No Pertinent History Endocrine Medical History: Diabetes Type II Musculoskeletal History: No Pertinent History GI Medical History: Other History: Other Psycho-Social History: No Pertinent History Female Reproductive Disorders: No Pertinent History Other Medical History: kidney stones - Past Surgical History Past Surgical History: Yes Neuro Surgical History: No Pertinent History Cardiac: No Pertinent History Respiratory: No Pertinent History Gastrointestinal: No Pertinent History Genitourinary: No Pertinent History Musculoskeletal: No Pertinent History Female Surgical History: Dilation & Curettage, Section - Social History Smoking Status: Never smoker Exposure to second hand smoke: No Drug Use: none Patient Lives Alone: No - Female History Hx Last Menstrual Period: Ending now Hx Now: No - Nursing Vital Signs Nursing Vital Signs: Initial Vital Signs Temperature 97.5 F 03/02/18 19:37 Pulse Rate 73 03/02/18 19:37 Respiratory Rate 18 03/02/18 19:37 Blood Pressure 145/59 03/02/18 19:37 O2 Sat by Pulse Oximetry 98 03/02/18 19:37 Pain Scale Pain Intensity 8 - Physical Exam General Appearance: no apparent distress, alert Eye Exam: PERRL/EOMI, eyes nml inspection Ears, Nose, Throat Exam: normal ENT inspection, pharynx normal, moist mucous membranes Neck Exam: normal inspection, non-tender, supple, full range of motion Respiratory Exam: normal breath sounds, lungs clear, No respiratory distress Cardiovascular Exam: regular rate/rhythm, normal heart sounds Gastrointestinal/Abdomen Exam: tenderness (mild tenderness in suprapubic region) Pelvic Exam: not done Rectal Exam: not done Back Exam: normal inspection, normal range of motion, No CVA tenderness, No vertebral tenderness Extremity Exam: normal inspection, normal range of motion, pelvis stable Neurologic Exam: alert, oriented x 3, cooperative, normal mood/affect, nml cerebellar function, sensation nml, No motor deficits Skin Exam: normal color, warm, dry SpO2 Interpretation: normal SpO2: 98 Oxygen Delivery: Room Air Ordered Tests: Active Orders 24 hr Category Date Time Status CBC W DIFF Stat Lab 03/02/18 20:40 Completed CMP Stat Lab 03/02/18 20:40 Completed HCG QUALITATIVE,SERUM Stat Lab 03/02/18 20:40 Completed UA W/RFX UR CULTURE Stat Lab 03/02/18 20:28 Completed Urine Triage Profile Stat Lab 03/02/18 20:28 Completed Lab/Rad Data: Laboratory Result Diagrams 03/02/18 20:40 03/02/18 20:40 Laboratory Results 03/02/18 03/02/18 03/02/18 Range/Units 20:40 20:40 20:40 WBC 8.2 (4.0-10.5) K/mm3 RBC 3.89 L (4.1-5.4) M/mm3 Hgb 11.6 L (12.0-16.0) gm/dl Hct 35.0 (35-47) % MCV 90.0 (78-100) fl MCH 29.8 (26-32) pg MCHC 33.1 (32-36) g/dl RDW 13.2 (11.5-14.0) % Plt Count 287 (150-450) K/mm3 MPV 9.5 (6-9.5) fl Gran % 56.5 (36.0-66.0) % Eos # (Auto) 0.23 (0-0.5) Absolute Lymphs (auto) 2.87 (1.0-4.6) Absolute Monos (auto) 0.42 (0.0-1.3) Lymphocytes % 35.1 (24.0-44.0) % Monocytes % 5.1 (0.0-12.0) % Eosinophils % 2.8 (0.00-5.0) % Basophils % 0.5 (0.0-0.4) % Absolute Granulocytes 4.61 (1.4-6.9) Basophils # 0.04 (0-0.4) Sodium 138 (137-145) mmol/L Potassium 4.0 (3.5-5.1) mmol/L Chloride 105 (98-107) mmol/L Carbon Dioxide 22 (22-30) mmol/L Anion Gap 14.1 (5-15) MEQ/L BUN 19 H (7-17) mg/dL Creatinine 0.69 (0.52-1.04) mg/dL Estimated GFR > 60.0 ML/MIN Glucose 102 (74-106) mg/dL Calcium 9.1 (8.4-10.2) mg/dL Total Bilirubin 0.10 L (0.2-1.3) mg/dL AST 18 (14-36) U/L ALT 16 (0-35) U/L Alkaline Phosphatase 69 (38-126) U/L Serum Total Protein 7.1 (6.3-8.2) g/dL Albumin 4.0 (3.5-5.0) g/dL Serum , Qual NEGATIVE (Negative) Urine Color (YELLOW) Urine Appearance (CLEAR) Urine pH (5-6) Ur Specific Lima (1.005-1.025) Urine Protein (Negative) Urine Ketones (NEGATIVE) Urine Blood (0-5) Josue/ul Urine Nitrite (NEGATIVE) Urine Bilirubin (NEGATIVE) Urine Urobilinogen (0-1) mg/dL Ur Leukocyte Esterase (NEGATIVE) Urine WBC (Auto) (0-5) /HPF Urine RBC (Auto) (0-2) /HPF U Epithel Cells (Auto) (FEW) /HPF Urine Bacteria (Auto) (NEGATIVE) /HPF Urine Mucus (Auto) (NEGATIVE) /HPF Urine Culture Reflexed (NO) Urine Glucose (NEGATIVE) mg/dL Urine Opiates Level (NEGATIVE) Ur Methadone (NEGATIVE) Urine Barbiturates (NEGATIVE) Ur Phencyclidine (PCP) (NEGATIVE) Urine Amphetamine (NEGATIVE) U Benzodiazepine Level (NEGATIVE) Urine Cocaine (NEGATIVE) Urine Marijuana (THC) (NEGATIVE) 03/02/18 03/02/18 Range/Units 20:28 20:28 WBC (4.0-10.5) K/mm3 RBC (4.1-5.4) M/mm3 Hgb (12.0-16.0) gm/dl Hct (35-47) % MCV (78-100) fl MCH (26-32) pg MCHC (32-36) g/dl RDW (11.5-14.0) % Plt Count (150-450) K/mm3 MPV (6-9.5) fl Gran % (36.0-66.0) % Eos # (Auto) (0-0.5) Absolute Lymphs (auto) (1.0-4.6) Absolute Monos (auto) (0.0-1.3) Lymphocytes % (24.0-44.0) % Monocytes % (0.0-12.0) % Eosinophils % (0.00-5.0) % Basophils % (0.0-0.4) % Absolute Granulocytes (1.4-6.9) Basophils # (0-0.4) Sodium (137-145) mmol/L Potassium (3.5-5.1) mmol/L Chloride (98-107) mmol/L Carbon Dioxide (22-30) mmol/L Anion Gap (5-15) MEQ/L BUN (7-17) mg/dL Creatinine (0.52-1.04) mg/dL Estimated GFR ML/MIN Glucose (74-106) mg/dL Calcium (8.4-10.2) mg/dL Total Bilirubin (0.2-1.3) mg/dL AST (14-36) U/L ALT (0-35) U/L Alkaline Phosphatase (38-126) U/L Serum Total Protein (6.3-8.2) g/dL Albumin (3.5-5.0) g/dL Serum , Qual (Negative) Urine Color YELLOW (YELLOW) Urine Appearance CLEAR (CLEAR) Urine pH 5.0 (5-6) Ur Specific Lima 1.017 (1.005-1.025) Urine Protein NEGATIVE (Negative) Urine Ketones NEGATIVE (NEGATIVE) Urine Blood LARGE (0-5) Josue/ul Urine Nitrite NEGATIVE (NEGATIVE) Urine Bilirubin NEGATIVE (NEGATIVE) Urine Urobilinogen NEGATIVE (0-1) mg/dL Ur Leukocyte Esterase NEGATIVE (NEGATIVE) Urine WBC (Auto) 0-2 (0-5) /HPF Urine RBC (Auto) 3-5 (0-2) /HPF U Epithel Cells (Auto) RARE (FEW) /HPF Urine Bacteria (Auto) NONE (NEGATIVE) /HPF Urine Mucus (Auto) SLIGHT (NEGATIVE) /HPF Urine Culture Reflexed NO (NO) Urine Glucose NEGATIVE (NEGATIVE) mg/dL Urine Opiates Level NEGATIVE (NEGATIVE) Ur Methadone NEGATIVE (NEGATIVE) Urine Barbiturates NEGATIVE (NEGATIVE) Ur Phencyclidine (PCP) NEGATIVE (NEGATIVE) Urine Amphetamine NEGATIVE (NEGATIVE) U Benzodiazepine Level NEGATIVE (NEGATIVE) Urine Cocaine NEGATIVE (NEGATIVE) Urine Marijuana (THC) NEGATIVE (NEGATIVE) - Progress Progress Note: 03/02/18 21:41 I discussed the laboratory findings including the urinalysis with the patient. She decided to try an injection of Toradol 60 mg by IM instead of any narcotics. She declined a CT scan of the abdomen at this time. If needed, she will follow-up tomorrow with her primary medical doctor, Dr. Steven. Counseled pt/family regarding: lab results, diagnosis, need for follow-up - Departure Time of Disposition: 21:43 Departure Disposition: Home Clinical Impression: Abdominal pain Condition: Stable Critical Care Time: No Referrals: HILTON STEVEN MD [Primary Care Provider] - Additional Instructions: You have low central abdominal pain in the region of your urinary bladder. Your laboratory results were all negative including the CBC and urinalysis. You are not . You were given Toradol 60 mg by IM in the ER. We discussed an abdominal CT scan but we decided to wait and see what happens tomorrow. Follow-up with your primary medical doctor tomorrow if the condition has not improved. Take Tylenol 1000 mg and ibuprofen 800 mg every 8 hours as needed.
[2018-03-02 20:37] LABS: Appearance CLEAR (CLEAR); Bilirubin NEGATIVE (NEGATIVE); Blood LARGE Ery/ul (0-5); Glucose NEGATIVE (NEGATIVE); Ketones NEGATIVE (NEGATIVE); Leukocyte Esterase NEGATIVE (NEGATIVE); Nitrite NEGATIVE (NEGATIVE); Protein,Urine Dip NEGATIVE (Negative); Specific Gravity 1.017 (1.005-1.025); Urobilinogen NEGATIVE mg/dL (0-1)
[2018-03-02 20:48] LABS: Amphetamine,Urine NEGATIVE (NEGATIVE); Barbiturate,Urine NEGATIVE (NEGATIVE); Benzodiazepine,Urine NEGATIVE (NEGATIVE); Cocaine,Urine NEGATIVE (NEGATIVE); Methadone,Urine NEGATIVE (NEGATIVE); Opiate,Urine NEGATIVE (NEGATIVE); THC,Urine NEGATIVE (NEGATIVE)
[2018-03-02 20:54] LABS: BASOPHIL % 0.5 % (0.0-0.4); Basophil (Absolute #) 0.04 (0-0.4); Eosinophil % 2.8 % (0.00-5.0); Eosinophil (Absolute #) 0.23 (0-0.5); Granulocyte Absolute (ANC) 4.61 (1.4-6.9); Granulocytes % 56.5 % (36.0-66.0); Hemoglobin 11.6 gm/dl (12.0-16.0); Lymphocyte (Absolute #) 2.87 (1.0-4.6); Lymphocytes % 35.1 % (24.0-44.0); Mean Corpuscular Hemoglobin 29.8 pg (26-32); Mean Corpuscular Hgb Concent. 33.1 g/dl (32-36); Mean Platelet Volume 9.5 fl (6-9.5); Monocyte (Absolute #) 0.42 (0.0-1.3); Monocytes % 5.1 % (0.0-12.0); Platelet Count 287 K/mm3 (150-450); Red Blood Count 3.89 M/mm3 (4.1-5.4); Red Cell Distribution Width 13.2 % (11.5-14.0); White Blood Count 8.2 K/mm3 (4.0-10.5)
[2018-03-02 20:58] LABS: PCP,Urine NEGATIVE (NEGATIVE)
[2018-03-02 21:10] LABS: ALKALINE PHOSPHATASE 69 U/L (38-126); ANION GAP 14.1 MEQ/L (5-15); BLOOD UREA NITROGEN 19 mg/dL (7-17); CHLORIDE 105 mmol/L (98-107); Calcium 9.1 mg/dL (8.4-10.2); Carbon Dioxide 22 mmol/L (22-30); Creatinine 1 0.69 mg/dL (0.52-1.04); Glucose 102 mg/dL (74-106); SGOT/AST 18 U/L (14-36); SGPT/ALT 16 U/L (0-35); SODIUM 138 mmol/L (137-145); Total Protein 7.1 g/dL (6.3-8.2)
[2018-03-02 21:13] VITALS: O2SAT 98
[2018-03-02] MEDS ORDERED: TORAdol 30 mg Injection ONE (21:54)
[2018-03-02] MEDS: TORAdol 30 mg Injection IM ONE (21:58)
[2018-03-02 22:32] VITALS: BP 108/69; PULSE 78
== END 2018-03-02 22:25 | disposition home or self-care (01) ==
LOC: ED 19:10
DX: R10.9 Unspecified abdominal pain (principal); Z79.899 Other long term (current) drug therapy; E11.9 Type 2 diabetes mellitus without complications; Z79.84 Long term (current) use of oral hypoglycemic drugs
CPT/HCPCS: 36415; 80053; 80307; 81001; 81025; 85025; 96372; 99284; J1885

== ENCOUNTER 2018-05-13 22:27 | Emergency (ER) | payer OTHER ==
[2018-05-13 23:25] VITALS: PULSE 73
--- NOTE | 2018-05-13 23:32 | ERPHSYRPT ---
- History of Present Illness Time Seen by Provider: 05/13/18 23:27 Source: patient, family Exam Limitations: no limitations Patient Subjective Stated Complaint: Wound check to abdominal surgical incision Triage Nursing Assessment: Patient ambulated back to ED and transferred self to bed. Patient A+O X 3. Patient complains of irration and foul smell around surgical incision from female surgery 3 weeks ago. Patient's skin pink, warm and dry. Patient's incision to lower abdomen well approximated with red rash around incision scar with foul smell. No drainage present. Physician History: Patient is a 47-year-old female with family complaining that she has a red skin rash in the skin folds of her lower abdomen. This began about 3 days ago and has become worse. It now has a foul odor to it. She had abdominal surgery 3 weeks ago. In addition to ovarian cyst removal there was some exploratory surgery. Up until 3 days ago everything was doing well. She denies fever or chills. She is anxious and is worried because she has diabetes. She denies fever or chills. Her past medical history significant for anxiety and diabetes. Timing/Duration: day(s) (3), gradual onset, worse Quality: other (red) Severity: moderate Location: torso (in skin folds of lower abd) Possible Causes: no cause identified Associated Symptoms: rash Allergies/Adverse Reactions: Penicillins Allergy (Verified 05/13/18 23:31) Sulfa (Sulfonamide Antibiotics) Allergy (Verified 05/13/18 23:31) codeine Adverse Reaction (Verified 05/13/18 23:31) Vomiting Home Medications: Sitagliptin Phos/Metformin HCl [Janumet 50-500 mg Tablet] 1 each PO BID [History] Clonazepam 0.5 mg [Klonopin 0.5 MG] 0.5 mg PO BID 12/22/17 [History] Lisinopril/Hydrochlorothiazide [Lisinopril-Hctz 10-12.5 mg Tab] 1 tab PO DAILY 05/13/18 [History] Hx Tetanus, Diphtheria Vaccination/Date Given: No Hx Influenza Vaccination/Date Given: No Hx Pneumococcal Vaccination/Date Given: No Immunizations Up to Date: Yes - Review of Systems Constitutional: No Fever, No Chills Eyes: No Symptoms Ears, Nose, & Throat: No Symptoms Respiratory: No Cough, No Dyspnea Cardiac: No Chest Pain, No Edema, No Syncope Abdominal/Gastrointestinal: No Abdominal Pain, No Nausea, No Vomiting, No Diarrhea Genitourinary Symptoms: No Dysuria Musculoskeletal: No Back Pain, No Neck Pain Skin: Rash Neurological: No Dizziness, No Focal Weakness, No Sensory Changes Psychological: No Symptoms Endocrine: No Symptoms Hematologic/Lymphatic: No Symptoms Immunological/Allergic: No Symptoms All Other Systems: Reviewed and Negative - Past Medical History Pertinent Past Medical History: Yes Neurological History: No Pertinent History ENT History: No Pertinent History Cardiac History: No Pertinent History, Hypertension Respiratory History: No Pertinent History Endocrine Medical History: Diabetes Type II Musculoskeletal History: No Pertinent History GI Medical History: Other History: Other Psycho-Social History: No Pertinent History Female Reproductive Disorders: No Pertinent History Other Medical History: kidney stones - Past Surgical History Past Surgical History: Yes Neuro Surgical History: No Pertinent History Cardiac: No Pertinent History Respiratory: No Pertinent History Gastrointestinal: No Pertinent History Genitourinary: No Pertinent History Musculoskeletal: No Pertinent History Female Surgical History: Dilation & Curettage, Section - Social History Smoking Status: Never smoker Exposure to second hand smoke: Yes Drug Use: none Patient Lives Alone: No - Female History Hx Last Menstrual Period: 1 month ago Hx Now: No - Nursing Vital Signs Nursing Vital Signs: Initial Vital Signs Temperature 97.5 F 05/13/18 23:11 Pulse Rate 73 05/13/18 23:11 Respiratory Rate 18 05/13/18 23:11 Blood Pressure 135/65 05/13/18 23:11 O2 Sat by Pulse Oximetry 100 05/13/18 23:11 Pain Scale Pain Intensity 5 - Physical Exam General Appearance: anxiety Eye Exam: PERRL/EOMI, eyes nml inspection Ears, Nose, Throat Exam: normal ENT inspection, pharynx normal, moist mucous membranes Neck Exam: normal inspection, non-tender, supple, full range of motion Respiratory Exam: normal breath sounds, lungs clear, No respiratory distress Cardiovascular Exam: regular rate/rhythm, normal heart sounds Gastrointestinal/Abdomen Exam: soft, mass, No tenderness Pelvic Exam: not done Rectal Exam: not done Back Exam: normal inspection, normal range of motion, No CVA tenderness, No vertebral tenderness Extremity Exam: normal inspection, normal range of motion Neurologic Exam: alert, oriented x 3, cooperative, normal mood/affect, sensation nml, No motor deficits Skin Exam: rash (There is a large skin fold in the lower abdomen over the supra pubic region. There is a well-healed surgical scar in the skin fold. Superior and inferior to the horizontal, there is a confluent red rash. The skin is mildly broken down in the red rash. There is a odor.) SpO2 Interpretation: normal SpO2: 100 O2 Delivery: Room Air - Progress Progress: unchanged Counseled pt/family regarding: diagnosis, need for follow-up - Departure Time of Disposition: 23:33 Departure Disposition: Home Clinical Impression: Rash Condition: Stable Critical Care Time: No Referrals: HILTON STEVEN MD [Primary Care Provider] - Additional Instructions: You have a superficial skin rash/infection in your skin of your lower abdomen. This is presumptively a bacterial infection at this time. Keep the area clean with mild baby shampoo. Keep the area dry. Then apply mupirocin to the rash 2 times a day for 7 days. If the rash does not improve within one to 2 days, please see Dr. Steven who may want to change the antibiotic.
[2018-05-13] MEDS ORDERED: Bactroban OINTMENT TP ONE (23:33)
[2018-05-13 23:54] VITALS: BP 133/58; O2SAT 97
== END 2018-05-13 23:57 | disposition home or self-care (01) ==
LOC: ED 22:27
DX: R21 Rash and other nonspecific skin eruption (principal); F41.9 Anxiety disorder, unspecified; Z98.890 Other specified postprocedural states
CPT/HCPCS: 99283; A9270-GY

== ENCOUNTER 2020-01-02 21:28 | Emergency (ER) | payer SELFPAY ==
[2020-01-02 21:44] VITALS: O2SAT 99
[2020-01-02] MEDS ORDERED: DUONEB 0.5-3 MG/3 ml Neb IH ONE (21:58)
[2020-01-02] MEDS: DUONEB 0.5-3 MG/3 ml Neb IH ONE (22:02)
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
[2020-01-02 22:31] VITALS: PULSE 78
[2020-01-02 22:33] VITALS: BP 134/77
== END 2020-01-02 22:43 | disposition home or self-care (01) ==
LOC: ED 21:28
DX: J70.5 Respiratory conditions due to smoke inhalation (principal); T59.811A Toxic effect of smoke, accidental (unintentional), initial encounter
CPT/HCPCS: 94150; 94640; 99283; A9270-GY

== ENCOUNTER 2020-10-23 21:24 | Emergency (ER) | payer OTHER ==
--- NOTE | 2020-10-23 21:45 | ERPHSYRPT ---
- History of Present Illness Time Seen by Provider: 10/23/20 21:45 Source: patient, family Exam Limitations: no limitations Physician History: This is a 50-year-old obese white female with a history of hypertension and is a patient of Dr. Steven. She was working all day out at the [employer] in the heat. She felt very hot. She also passed out. She had not been drinking fluids today as much as she should. She has no chest pain. She is not short of breath. She does not recall all the events. Patient had no fever or chills. She has had no cough. He has had no diarrhea. She has had nausea but no vomiting. She states that she has had this before when she is overheated. Timing/Duration: today Severity: moderate Associated Symptoms: nausea, weakness, No vomiting, No abdominal pain, No shortness of breath, No chest pain Allergies/Adverse Reactions: Penicillins Allergy (Verified 10/23/20 21:49) Sulfa (Sulfonamide Antibiotics) Allergy (Verified 10/23/20 21:49) codeine Adverse Reaction (Verified 10/23/20 21:49) Vomiting Home Medications: Sitagliptin Phos/Metformin HCl [Janumet 50-500 mg Tablet] 1 each PO DAILY 07/07/13 [History] Clonazepam 0.5 mg [Klonopin 0.5 MG] 0.5 mg PO BID 12/22/17 [History] Lisinopril/Hydrochlorothiazide [Lisinopril-Hctz 10-12.5 mg Tab] 1 tab PO DAILY 05/13/18 [History] Estradiol [Vagifem] 10 mcg VG DAILY 10/23/20 [History] Omeprazole Magnesium [Prilosec Otc] 20 mg PO DAILY 10/23/20 [History] Hx Tetanus, Diphtheria Vaccination/Date Given: Yes Hx Influenza Vaccination/Date Given: Yes Hx Pneumococcal Vaccination/Date Given: Yes Travel Risk - International Travel Have you traveled outside of the country in past 3 weeks: No - Coronavirus Screening Are you exhibiting any of the following symptoms?: No Close contact with a COVID-19 positive Pt in past 14-21 Days: No - Review of Systems Constitutional: Weakness Eyes: No Symptoms Ears, Nose, & Throat: No Symptoms Respiratory: No Symptoms Cardiac: No Symptoms Abdominal/Gastrointestinal: Nausea Genitourinary Symptoms: No Symptoms Musculoskeletal: No Symptoms Skin: No Symptoms Neurological: Dizziness Psychological: No Symptoms Endocrine: No Symptoms Hematologic/Lymphatic: No Symptoms Immunological/Allergic: No Symptoms All Other Systems: Reviewed and Negative - Past Medical History Pertinent Past Medical History: Yes Neurological History: No Pertinent History ENT History: No Pertinent History Cardiac History: Hypertension Respiratory History: Asthma Endocrine Medical History: Diabetes Type II Musculoskeletal History: No Pertinent History GI Medical History: Diverticulitis History: Other Psycho-Social History: No Pertinent History Female Reproductive Disorders: No Pertinent History Other Medical History: kidney stones - Past Surgical History Past Surgical History: Yes Neuro Surgical History: No Pertinent History Cardiac: No Pertinent History Respiratory: No Pertinent History Gastrointestinal: No Pertinent History Genitourinary: Other Musculoskeletal: No Pertinent History Female Surgical History: Section - Social History Smoking Status: Never smoker Exposure to second hand smoke: No Drug Use: none Patient Lives Alone: No Significant Family History: no pertinent family hx - Nursing Vital Signs Nursing Vital Signs: Initial Vital Signs Temperature 99.9 F 10/23/20 21:54 Pulse Rate 110 H 10/23/20 21:54 Respiratory Rate 16 10/23/20 21:54 Blood Pressure 116/86 10/23/20 21:54 O2 Sat by Pulse Oximetry 97 10/23/20 21:54 Pain Scale Pain Intensity 6 - Physical Exam General Appearance: mild distress, alert Eye Exam: PERRL/EOMI, eyes nml inspection Ears, Nose, Throat Exam: normal ENT inspection, dry mucous membranes Neck Exam: normal inspection, non-tender, supple, full range of motion Respiratory Exam: normal breath sounds, lungs clear, airway intact, No chest tenderness, No respiratory distress Cardiovascular Exam: tachycardia Gastrointestinal/Abdomen Exam: soft, normal bowel sounds, No tenderness Pelvic Exam: not done Rectal Exam: not done Back Exam: normal inspection, normal range of motion, No CVA tenderness, No vertebral tenderness Extremity Exam: normal inspection, normal range of motion, pelvis stable Neurologic Exam: alert, oriented x 3, cooperative, 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 No comparison EKG) Ordered Tests: Active Orders 24 hr Category Date Time Status Clean Catch Urine Specimen STAT Care 10/23/20 22:12 Active EKG-ER Only STAT Care 10/23/20 22:12 Active IV Insertion STAT Care 10/23/20 22:12 Active HEAD WITHOUT CONTRAST [CT] Stat Exams 10/23/20 22:13 Taken CBC W DIFF Stat Lab 10/23/20 22:03 Completed CMP Stat Lab 10/23/20 22:03 Completed ETHYL ALCOHOL Stat Lab 10/23/20 22:03 Completed TROPONIN Q3H Lab 10/23/20 22:03 Completed TROPONIN Q3H Lab 10/24/20 01:15 Ordered TROPONIN Q3H Lab 10/24/20 04:15 Ordered TROPONIN Q3H Lab 10/24/20 07:15 Ordered TROPONIN Q3H Lab 10/24/20 10:15 Ordered UA W/RFX UR CULTURE Stat Lab 10/23/20 22:19 Completed Urine Triage Profile Stat Lab 10/23/20 22:19 Completed Medication Summary Generic Name Dose Route Start Last Admin Trade Name Freq PRN Reason Stop Dose Admin Sodium Chloride 1,000 mls @ 999 mls/hr 10/23/20 23:15 Sodium Chloride 0.9% 1000 Ml IV 10/24/20 00:15 .Q1H1M STA Discontinued Medications Generic Name Dose Route Start Last Admin Trade Name Freq PRN Reason Stop Dose Admin Sodium Chloride 1,000 mls @ 999 mls/hr 10/23/20 22:12 10/23/20 23:35 Sodium Chloride 0.9% 1000 Ml IV 10/23/20 23:12 Infused .Q1H1M STA Infusion Sodium Chloride Confirm 10/23/20 22:20 Sodium Chloride 0.9% 1000 Ml Administered 10/23/20 22:21 Dose 1,000 mls @ ud .ROUTE .STK-MED ONE Sodium Chloride Confirm 10/23/20 23:34 Sodium Chloride 0.9% 1000 Ml Administered 10/23/20 23:35 Dose 1,000 mls @ ud .ROUTE .STK-MED ONE Ondansetron HCl 4 mg 10/23/20 22:12 10/23/20 22:22 Zofran 4 Mg/2 Ml Vial IV 10/23/20 22:13 4 mg STAT ONE Administration Ondansetron HCl Confirm 10/23/20 22:20 Zofran 4 Mg/2 Ml Vial Administered 10/23/20 22:21 Dose 4 mg .ROUTE .STK-MED ONE Lab/Rad Data: Laboratory Result Diagrams 10/23/20 22:03 10/23/20 22:03 Laboratory Results 10/23/20 10/23/20 10/23/20 Range/Units 22:19 22:19 22:03 WBC (4.0-10.5) K/mm3 RBC (4.1-5.4) M/mm3 Hgb (12.0-16.0) gm/dl Hct (35-47) % MCV (78-100) fl MCH (26-32) pg MCHC (32-36) g/dl RDW (11.5-14.0) % Plt Count (150-450) K/mm3 MPV (7.5-11.0) fl Gran % (36.0-66.0) % Eos # (Auto) (0-0.5) Absolute Lymphs (auto) (1.0-4.6) Absolute Monos (auto) (0.0-1.3) Lymphocytes % (24.0-44.0) % Monocytes % (0.0-12.0) % Eosinophils % (0.00-5.0) % Basophils % (0.0-0.4) % Absolute Granulocytes (1.4-6.9) Basophils # (0-0.4) Sodium (137-145) mmol/L Potassium (3.5-5.1) mmol/L Chloride (98-107) mmol/L Carbon Dioxide (22-30) mmol/L Anion Gap (5-15) MEQ/L BUN (7-17) mg/dL Creatinine (0.52-1.04) mg/dL Estimated GFR ML/MIN Glucose (74-106) mg/dL Calcium (8.4-10.2) mg/dL Total Bilirubin (0.2-1.3) mg/dL AST (14-36) U/L ALT (0-35) U/L Alkaline Phosphatase (38-126) U/L Troponin I < 0.012 (0.000-0.034) ng/mL Serum Total Protein (6.3-8.2) g/dL Albumin (3.5-5.0) g/dL Urine Color YELLOW (YELLOW) Urine Appearance SLIGHTLY CLOUDY (CLEAR) Urine pH 5.0 (5-6) Ur Specific [place] 1.024 (1.005-1.025) Urine Protein NEGATIVE (Negative) Urine Ketones TRACE (NEGATIVE) Urine Blood LARGE (0-5) Josue/ul Urine Nitrite NEGATIVE (NEGATIVE) Urine Bilirubin NEGATIVE (NEGATIVE) Urine Urobilinogen NEGATIVE (0-1) mg/dL Ur Leukocyte Esterase NEGATIVE (NEGATIVE) Urine WBC (Auto) 0-2 (0-5) /HPF Urine RBC (Auto) 3-5 (0-2) /HPF U Epithel Cells (Auto) RARE (FEW) /HPF Urine Bacteria (Auto) NONE (NEGATIVE) /HPF Urine Mucus (Auto) SLIGHT (NEGATIVE) /HPF Urine Culture Reflexed NO (NO) Urine Glucose NEGATIVE (NEGATIVE) mg/dL Urine Opiates Level NEGATIVE (NEGATIVE) Ur Methadone NEGATIVE (NEGATIVE) Urine Barbiturates NEGATIVE (NEGATIVE) Ur Phencyclidine (PCP) NEGATIVE (NEGATIVE) Urine Amphetamine NEGATIVE (NEGATIVE) U Benzodiazepine Level NEGATIVE (NEGATIVE) Urine Cocaine NEGATIVE (NEGATIVE) Urine Marijuana (THC) NEGATIVE (NEGATIVE) Ethyl Alcohol (0-10) mg/dL 10/23/20 10/23/20 Range/Units 22:03 22:03 WBC 12.4 H (4.0-10.5) K/mm3 RBC 4.12 (4.1-5.4) M/mm3 Hgb 11.9 L (12.0-16.0) gm/dl Hct 36.1 (35-47) % MCV 87.6 (78-100) fl MCH 28.9 (26-32) pg MCHC 33.0 (32-36) g/dl RDW 13.0 (11.5-14.0) % Plt Count 274 (150-450) K/mm3 MPV 10.4 (7.5-11.0) fl Gran % 79.2 H (36.0-66.0) % Eos # (Auto) 0.03 (0-0.5) Absolute Lymphs (auto) 1.89 (1.0-4.6) Absolute Monos (auto) 0.64 (0.0-1.3) Lymphocytes % 15.2 L (24.0-44.0) % Monocytes % 5.2 (0.0-12.0) % Eosinophils % 0.2 (0.00-5.0) % Basophils % 0.2 (0.0-0.4) % Absolute Granulocytes 9.81 H (1.4-6.9) Basophils # 0.03 (0-0.4) Sodium 135 L (137-145) mmol/L Potassium 3.9 (3.5-5.1) mmol/L Chloride 103 (98-107) mmol/L Carbon Dioxide 20 L (22-30) mmol/L Anion Gap 16.1 H (5-15) MEQ/L BUN 23 H (7-17) mg/dL Creatinine 1.00 (0.52-1.04) mg/dL Estimated GFR > 60.0 ML/MIN Glucose 174 H (74-106) mg/dL Calcium 9.0 (8.4-10.2) mg/dL Total Bilirubin 0.30 (0.2-1.3) mg/dL AST 27 (14-36) U/L ALT 15 (0-35) U/L Alkaline Phosphatase 78 (38-126) U/L Troponin I (0.000-0.034) ng/mL Serum Total Protein 7.7 (6.3-8.2) g/dL Albumin 4.3 (3.5-5.0) g/dL Urine Color (YELLOW) Urine Appearance (CLEAR) Urine pH (5-6) Ur Specific [place] (1.005-1.025) Urine Protein (Negative) Urine Ketones (NEGATIVE) Urine Blood (0-5) Jsoue/ul Urine Nitrite (NEGATIVE) Urine Bilirubin (NEGATIVE) Urine Urobilinogen (0-1) mg/dL Ur Leukocyte Esterase (NEGATIVE) Urine WBC (Auto) (0-5) /HPF Urine RBC (Auto) (0-2) /HPF U Epithel Cells (Auto) (FEW) /HPF Urine Bacteria (Auto) (NEGATIVE) /HPF Urine Mucus (Auto) (NEGATIVE) /HPF Urine Culture Reflexed (NO) Urine Glucose (NEGATIVE) mg/dL Urine Opiates Level (NEGATIVE) Ur Methadone (NEGATIVE) Urine Barbiturates (NEGATIVE) Ur Phencyclidine (PCP) (NEGATIVE) Urine Amphetamine (NEGATIVE) U Benzodiazepine Level (NEGATIVE) Urine Cocaine (NEGATIVE) Urine Marijuana (THC) (NEGATIVE) Ethyl Alcohol < 10 (0-10) mg/dL - Progress Progress: improved Progress Note: 10/23/20 23:04 CAT scan of the head without contrast shows no acute intracranial abnormality. 10/24/20 00:05 Patient states that she is feeling much better. She wants something to drink. The plan for her is to have her receive another liter of fluids intravenously. We will then send her home with instructions to stay out of the heat and continue drinking clear liquids. Counseled pt/family regarding: lab results, diagnosis, need for follow-up, rad results - Departure Departure Disposition: Home Clinical Impression: Dehydration Condition: Stable Critical Care Time: No Referrals: HILTON STEVEN MD [Primary Care Provider] - Additional Instructions: Drink plenty of fluids. Stay in cool home for 24 hours. Avoid heat for 24 hours.
[2020-10-23] MEDS ORDERED: Sodium Chloride 0.9% 1000 ML 1,000 ML IV STA ×2 (22:12→23:15)
[2020-10-23] MEDS ORDERED: Zofran 4 MG/2 ML VIAL IV ONE (22:12)
[2020-10-23] MEDS ORDERED: Sodium Chloride 0.9% 1000 ML 1,000 ML ONE ×2 (22:20→23:34)
[2020-10-23] MEDS ORDERED: Zofran 4 MG/2 ML VIAL ONE (22:20)
[2020-10-23 22:25] LABS: Absolute Neutrophil Ct (ANC) 9.81 (1.4-6.9); BASOPHIL % 0.2 % (0.0-0.4); Basophil (Absolute #) 0.03 (0-0.4); Eosinophil % 0.2 % (0.00-5.0); Eosinophil (Absolute #) 0.03 (0-0.5); Hematocrit 36.1 % (35-47); Hemoglobin 11.9 gm/dl (12.0-16.0); Lymphocyte (Absolute #) 1.89 (1.0-4.6); Lymphocytes % 15.2 % (24.0-44.0); Mean Cell Volume 87.6 fl (78-100); Mean Corpuscular Hemoglobin 28.9 pg (26-32); Mean Platelet Volume 10.4 fl (7.5-11.0); Monocyte (Absolute #) 0.64 (0.0-1.3); Monocytes % 5.2 % (0.0-12.0); Neutrophil % 79.2 % (36.0-66.0); Platelet Count 274 K/mm3 (150-450); Red Blood Count 4.12 M/mm3 (4.1-5.4); White Blood Count 12.4 K/mm3 (4.0-10.5)
[2020-10-23 22:32] LABS: ALBUMIN 4.3 g/dL (3.5-5.0); ALKALINE PHOSPHATASE 78 U/L (38-126); ANION GAP 16.1 MEQ/L (5-15); BLOOD UREA NITROGEN 23 mg/dL (7-17); CHLORIDE 103 mmol/L (98-107); Carbon Dioxide 20 mmol/L (22-30); EST GLOMERULAR FILTRATION RATE > 60.0 ML/MIN; Glucose 174 mg/dL (74-106); Potassium 3.9 mmol/L (3.5-5.1); SGOT/AST 27 U/L (14-36); SGPT/ALT 15 U/L (0-35); SODIUM 135 mmol/L (137-145); Total Protein 7.7 g/dL (6.3-8.2)
[2020-10-23 22:41] LABS: Amphetamine,Urine NEGATIVE (NEGATIVE); Barbiturate,Urine NEGATIVE (NEGATIVE); Benzodiazepine,Urine NEGATIVE (NEGATIVE); Cocaine,Urine NEGATIVE (NEGATIVE); Methadone,Urine NEGATIVE (NEGATIVE); Opiate,Urine NEGATIVE (NEGATIVE); PCP,Urine NEGATIVE (NEGATIVE); THC,Urine NEGATIVE (NEGATIVE)
[2020-10-23 23:24] LABS: ETHYL ALCOHOL < 10 mg/dL (0-10)
[2020-10-23 23:30] LABS: Appearance SLIGHTLY CLOUDY (CLEAR); Bilirubin NEGATIVE (NEGATIVE); Blood LARGE Ery/ul (0-5); Epithelial Cells RARE /HPF (FEW); Glucose NEGATIVE (NEGATIVE); Ketones TRACE (NEGATIVE); Leukocyte Esterase NEGATIVE (NEGATIVE); Mucus SLIGHT /HPF (NEGATIVE); Nitrite NEGATIVE (NEGATIVE); Protein,Urine Dip NEGATIVE (Negative); Specific Gravity 1.024 (1.005-1.025); Urobilinogen NEGATIVE mg/dL (0-1); WBC 0-2 /HPF (0-5)
[2020-10-24 01:21] VITALS: BP 102/46; PULSE 80; O2SAT 98
--- NOTE | 2020-10-24 08:47 | XRAY ---
Indication: Syncope. Dizziness. Multiple contiguous images obtained through the head without contrast. Comparison: December 22, 2017. Normal appearing brain parenchyma, ventricles, and bony calvarium. Visualized paranasal sinuses and mastoid air cells are clear. Impression: Continued normal CT head without contrast exam. Comment: Preliminary interpretation was made by [facility]. No critical discrepancy.
== END 2020-10-24 01:25 | disposition home or self-care (01) ==
LOC: ED 21:24
DX: E86.0 Dehydration (principal)
CPT/HCPCS: 36000; 36415; 70450; 80053; 80307; 81001; 84484; 85025; 93005; 96360; 96374; 99284; J2405; G0480

== ENCOUNTER 2021-05-02 14:44 | Emergency (ER) | payer BC ==
[2021-05-02] MEDS ORDERED: BABY ASPIRIN 81 MG CHEW PO ONE (15:00)
--- NOTE | 2021-05-02 15:10 | ERPHSYRPT ---
- History of Present Illness Time Seen by Provider: 05/02/21 14:50 Historian: patient Exam Limitations: no limitations Patient Subjective Stated Complaint: pt reports approx 1100 today she began having sharp intermittent midsternal chest pain that radiated through to her b ack, reports that she did undergo some stress today at work but her pain continued and radiated down her left arm and left jaw so she became concerned that it was not simply stress. pt states it felt like someone was sitting on her chest and she felt short of breath. Triage Nursing Assessment: pt is aox3, pt appears uncomfortable, pt afebrile, pt short of breath at rest, lung sounds are clear, cap refill < 3 seconds, radial pulses strong and equal, heart sounds normal, pt skin pink warm dry. Physician History: 50-year-old female with history of hypertension, diabetes mellitus presented in the ER with chief complaint of sudden onset substernal/central chest pain around 11 AM today while resting, continuous with radiation to shoulder and jaw without any significant aggravating or relieving factors. Also reports some shortness of breath which is improved now. Patient reports pain 6/10 intensity currently. No fever chills or cough. Timing/Duration: hour(s) (4), constant, sudden, improved Activities at Onset: emotional stress, rest Quality: sharpness Location: substernal, central Chest Pain Radiation: jaw, arm Severity of Pain-Max: moderate Severity of Pain-Current: moderate Associated Symptoms: shortness of breath Prior Chest Pain/Cardiac Workup: no prior chest pain, no prior cardiac workup Nitro Today/Relief: no nitro taken today Aspirin Treatment Today: no aspirin today Allergies/Adverse Reactions: Penicillins Allergy (Verified 05/02/21 15:01) Sulfa (Sulfonamide Antibiotics) Allergy (Verified 05/02/21 15:01) codeine Adverse Reaction (Verified 05/02/21 15:01) Vomiting Home Medications: Sitagliptin Phos/Metformin HCl [Janumet 50-500 mg Tablet] 1 each PO DAILY 07/07/13 [History] Clonazepam 0.5 mg [Klonopin 0.5 MG] 0.5 mg PO BID 12/22/17 [History] Lisinopril/Hydrochlorothiazide [Lisinopril-Hctz 10-12.5 mg Tab] 1 tab PO DAILY 05/13/18 [History] estradioL [Vagifem] 10 mcg VG DAILY 10/23/20 [History] Hx Tetanus, Diphtheria Vaccination/Date Given: Yes Hx Influenza Vaccination/Date Given: Yes Hx Pneumococcal Vaccination/Date Given: Yes Travel Risk - International Travel Have you traveled outside of the country in past 3 weeks: No - Coronavirus Screening Are you exhibiting any of the following symptoms?: No - Vaccine Status Have you recieved a Covid-19 vaccination: Yes 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[employer] - Vaccination Dates Comment: booster of JJ - Review of Systems Constitutional: No Symptoms Eyes: No Symptoms Ears, Nose, & Throat: No Symptoms Respiratory: Dyspnea on Exertion (MCCLURE) Cardiac: Chest Pain Abdominal/Gastrointestinal: No Symptoms Genitourinary Symptoms: No Symptoms Musculoskeletal: No Symptoms Skin: No Symptoms Neurological: No Symptoms Psychological: No Symptoms Endocrine: No Symptoms Hematologic/Lymphatic: No Symptoms Immunological/Allergic: No Symptoms - Past Medical History Pertinent Past Medical History: Yes Neurological History: No Pertinent History ENT History: No Pertinent History Cardiac History: Hypertension Respiratory History: Asthma Endocrine Medical History: Diabetes Type II Musculoskeletal History: No Pertinent History GI Medical History: Diverticulitis History: Other Psycho-Social History: No Pertinent History Female Reproductive Disorders: No Pertinent History Other Medical History: kidney stones - Past Surgical History Past Surgical History: Yes Neuro Surgical History: No Pertinent History Cardiac: No Pertinent History Respiratory: No Pertinent History Gastrointestinal: No Pertinent History Genitourinary: Other Musculoskeletal: No Pertinent History Female Surgical History: Section - Social History Smoking Status: Never smoker Exposure to second hand smoke: No Drug Use: none Patient Lives Alone: No Significant Family History: no pertinent family hx - Nursing Vital Signs Nursing Vital Signs: Initial Vital Signs Temperature 97.7 F 05/02/21 14:50 Pulse Rate 88 05/02/21 14:50 Respiratory Rate 16 05/02/21 14:50 Blood Pressure 157/97 05/02/21 14:50 O2 Sat by Pulse Oximetry 100 05/02/21 14:50 Pain Scale Pain Intensity 0 - Physical Exam General Appearance: no apparent distress, alert Eye Exam: PERRL/EOMI, eyes nml inspection Ears, Nose, Throat Exam: normal ENT inspection, TMs normal, pharynx normal, moist mucous membranes Neck Exam: normal inspection, non-tender, supple, full range of motion Respiratory Exam: normal breath sounds, lungs clear, No chest tenderness Cardiovascular Exam: regular rate/rhythm, normal heart sounds Gastrointestinal/Abdomen Exam: soft, normal bowel sounds Back Exam: normal inspection, normal range of motion Extremity Exam: normal inspection, normal range of motion Neurologic Exam: alert, oriented x 3, cooperative Skin Exam: normal color SpO2 Interpretation: normal SpO2: 100 O2 Delivery: Room Air - Course EKG Interpreted by Me: RATE (84), Sinus Rhythm, NORMAL AXIS, NORMAL INTERVALS, Non-specific ST Changes Ordered Tests: Medication Summary Discontinued Medications Generic Name Dose Route Start Last Admin Trade Name Purnima PRN Reason Stop Dose Admin Albuterol/Ipratropium Confirm 05/02/21 16:56 Ipratropium/Albuterol Sulfate 3 Ml Ampul.Neb Administered 05/02/21 16:57 Dose 3 ml IH .STK-MED ONE Albuterol/Ipratropium 3 ml 05/02/21 17:14 05/02/21 16:56 Ipratropium/Albuterol Sulfate 3 Ml Ampul.Neb IH 05/02/21 17:15 3 ml STAT ONE Administration Aspirin 324 mg 05/02/21 15:00 05/02/21 15:15 Aspirin 81 Mg Tab.Chew PO 05/02/21 15:01 324 mg STAT ONE Administration Methylprednisolone Sodium 0 mg 05/02/21 17:42 05/02/21 17:45 Succinate 125 mg/ Sterile IV 05/02/21 17:43 125 mg Water 2 ml STAT ONE Administration Diphenhydramine HCl Confirm 05/02/21 16:57 Diphenhydramine Hcl 50 Mg/Ml Vial Administered 05/02/21 16:58 Dose 50 mg .ROUTE .STK-MED ONE Diphenhydramine HCl 25 mg 05/02/21 17:42 05/02/21 17:44 Diphenhydramine Hcl 50 Mg/Ml Vial IV 05/02/21 17:43 25 mg STAT ONE Administration Heparin Sodium (Beef Lung) 5,000 unit 05/02/21 18:28 05/02/21 19:05 Heparin 5000 Unit/0.5 Ml Syringe IV 05/02/21 18:29 5,000 unit STAT ONE Administration Heparin Sodium (Beef Lung) Confirm 05/02/21 19:00 Heparin 5000 Unit/0.5 Ml Syringe Administered 05/02/21 19:01 Dose 5,000 unit .ROUTE .STK-MED ONE Heparin Sodium/Dextrose 25,000 units in 250 mls @ 10 mls/hr 05/02/21 18:30 05/02/21 19:12 Heparin 25,000 Units/D5w 250ml Premix IV 06/01/21 18:29 10 mls/hr .Q24H MANJULA 10 mls/hr Administration Heparin Sodium/Dextrose Confirm 05/02/21 19:09 Heparin 25,000 Units/D5w 250ml Premix Administered 05/02/21 19:10 Dose 25,000 units in 250 mls @ ud IV .STK-MED ONE Methylprednisolone Sodium Succinate Confirm 05/02/21 16:57 Methylprednis Sod Succ 125 Mg/2 Ml Vial Administered 05/02/21 16:58 Dose 125 mg .ROUTE .STK-MED ONE Morphine Sulfate Confirm 05/02/21 17:36 Morphine Sulfate 4 Mg/Ml Injection Administered 05/02/21 17:37 Dose 4 mg .ROUTE .STK-MED ONE Morphine Sulfate 4 mg 05/02/21 18:56 05/02/21 19:06 Morphine Sulfate 4 Mg/Ml Injection IV 05/02/21 18:57 4 mg STAT ONE Administration Morphine Sulfate Confirm 05/02/21 19:00 Morphine Sulfate 4 Mg/Ml Injection Administered 05/02/21 19:01 Dose 4 mg .ROUTE .STK-MED ONE Morphine Sulfate 4 mg 05/03/21 06:59 05/02/21 17:00 Morphine Sulfate 4 Mg/Ml Injection IV 05/03/21 07:00 4 mg STAT ONE Administration Nitroglycerin Confirm 05/02/21 16:52 Nitroglycerin 1 Gm Packet Administered 05/02/21 16:53 Dose 1 gm .ROUTE .STK-MED ONE Ondansetron HCl Confirm 05/02/21 17:36 Ondansetron Hcl 4 Mg/2 Ml Vial Administered 05/02/21 17:37 Dose 4 mg .ROUTE .STK-MED ONE Ondansetron HCl 4 mg 05/02/21 17:43 05/02/21 17:45 Ondansetron Hcl 4 Mg/2 Ml Vial IV 05/02/21 17:44 4 mg STAT ONE Administration Sterile Water Confirm 05/02/21 16:57 Water For Injection,Sterile 10 Ml Vial Administered 05/02/21 16:58 Dose 10 ml IJ .STK-MED ONE Lab/Rad Data: Laboratory Result Diagrams 05/02/21 15:20 05/02/21 15:20 Laboratory Results 05/02/21 05/02/21 05/02/21 Range/Units 17:15 15:20 15:20 WBC (4.0-10.5) K/mm3 RBC (4.1-5.4) M/mm3 Hgb (12.0-16.0) gm/dl Hct (35-47) % MCV (78-100) fl MCH (26-32) pg MCHC (32-36) g/dl RDW (11.5-14.0) % Plt Count (150-450) K/mm3 MPV (7.5-11.0) fl Gran % (36.0-66.0) % Eos # (Auto) (0-0.5) Absolute Lymphs (auto) (1.0-4.6) Absolute Monos (auto) (0.0-1.3) Lymphocytes % (24.0-44.0) % Monocytes % (0.0-12.0) % Eosinophils % (0.00-5.0) % Basophils % (0.0-0.4) % Absolute Granulocytes (1.4-6.9) Basophils # (0-0.4) PT 12.8 H (9.4-12.5) SECONDS INR 1.08 (0.8-3.0) APTT 31.2 (25.1-36.5) SECONDS D-Dimer (215-500) ng/mL Sodium (137-145) mmol/L Potassium (3.5-5.1) mmol/L Chloride (98-107) mmol/L Carbon Dioxide (22-30) mmol/L Anion Gap (5-15) MEQ/L BUN (7-17) mg/dL Creatinine (0.52-1.04) mg/dL Estimated GFR ML/MIN Glucose (74-106) mg/dL Calcium (8.4-10.2) mg/dL Magnesium (1.6-2.3) mg/dL Total Bilirubin (0.2-1.3) mg/dL AST (14-36) U/L ALT (0-35) U/L Alkaline Phosphatase (38-126) U/L Troponin I 1.670 H* (0.000-0.034) ng/mL NT-Pro-B Natriuret Pep (0-900) pg/mL Serum Total Protein (6.3-8.2) g/dL Albumin (3.5-5.0) g/dL SARS-CoV-2 Ag (Rapid) NEGATIVE (NEGATIVE) 05/02/21 05/02/21 05/02/21 Range/Units 15:20 15:20 15:00 WBC 8.7 (4.0-10.5) K/mm3 RBC 4.03 L (4.1-5.4) M/mm3 Hgb 11.7 L (12.0-16.0) gm/dl Hct 36.4 (35-47) % MCV 90.3 (78-100) fl MCH 29.0 (26-32) pg MCHC 32.1 (32-36) g/dl RDW 13.5 (11.5-14.0) % Plt Count 295 (150-450) K/mm3 MPV 9.5 (7.5-11.0) fl Gran % 56.9 (36.0-66.0) % Eos # (Auto) 0.28 (0-0.5) Absolute Lymphs (auto) 2.85 (1.0-4.6) Absolute Monos (auto) 0.56 (0.0-1.3) Lymphocytes % 32.9 (24.0-44.0) % Monocytes % 6.5 (0.0-12.0) % Eosinophils % 3.2 (0.00-5.0) % Basophils % 0.5 (0.0-0.4) % Absolute Granulocytes 4.93 (1.4-6.9) Basophils # 0.04 (0-0.4) PT (9.4-12.5) SECONDS INR (0.8-3.0) APTT (25.1-36.5) SECONDS D-Dimer 870 H* (215-500) ng/mL Sodium 140 (137-145) mmol/L Potassium 4.6 (3.5-5.1) mmol/L Chloride 106 (98-107) mmol/L Carbon Dioxide 28 (22-30) mmol/L Anion Gap 10.8 (5-15) MEQ/L BUN 21 H (7-17) mg/dL Creatinine 1.02 (0.52-1.04) mg/dL Estimated GFR > 60.0 ML/MIN Glucose 105 (74-106) mg/dL Calcium 9.1 (8.4-10.2) mg/dL Magnesium (1.6-2.3) mg/dL Total Bilirubin 0.30 (0.2-1.3) mg/dL AST 25 (14-36) U/L ALT 22 (0-35) U/L Alkaline Phosphatase 87 (38-126) U/L Troponin I (0.000-0.034) ng/mL NT-Pro-B Natriuret Pep 157 (0-900) pg/mL Serum Total Protein 7.3 (6.3-8.2) g/dL Albumin 4.0 (3.5-5.0) g/dL SARS-CoV-2 Ag (Rapid) (NEGATIVE) 05/02/21 05/02/21 Range/Units 15:00 15:00 WBC (4.0-10.5) K/mm3 RBC (4.1-5.4) M/mm3 Hgb (12.0-16.0) gm/dl Hct (35-47) % MCV (78-100) fl MCH (26-32) pg MCHC (32-36) g/dl RDW (11.5-14.0) % Plt Count (150-450) K/mm3 MPV (7.5-11.0) fl Gran % (36.0-66.0) % Eos # (Auto) (0-0.5) Absolute Lymphs (auto) (1.0-4.6) Absolute Monos (auto) (0.0-1.3) Lymphocytes % (24.0-44.0) % Monocytes % (0.0-12.0) % Eosinophils % (0.00-5.0) % Basophils % (0.0-0.4) % Absolute Granulocytes (1.4-6.9) Basophils # (0-0.4) PT (9.4-12.5) SECONDS INR (0.8-3.0) APTT (25.1-36.5) SECONDS D-Dimer (215-500) ng/mL Sodium (137-145) mmol/L Potassium (3.5-5.1) mmol/L Chloride (98-107) mmol/L Carbon Dioxide (22-30) mmol/L Anion Gap (5-15) MEQ/L BUN (7-17) mg/dL Creatinine (0.52-1.04) mg/dL Estimated GFR ML/MIN Glucose (74-106) mg/dL Calcium (8.4-10.2) mg/dL Magnesium 1.7 (1.6-2.3) mg/dL Total Bilirubin (0.2-1.3) mg/dL AST (14-36) U/L ALT (0-35) U/L Alkaline Phosphatase (38-126) U/L Troponin I 1.480 H* (0.000-0.034) ng/mL NT-Pro-B Natriuret Pep (0-900) pg/mL Serum Total Protein (6.3-8.2) g/dL Albumin (3.5-5.0) g/dL SARS-CoV-2 Ag (Rapid) (NEGATIVE) - Progress Progress: improved Air Movement: good Progress Note: 05/02/21 18:31 50-year-old is evaluated for pain, given aspirin along with morphine/Nitropaste for symptomatic relief. EKG showed sinus rhythm without any acute ischemic changes. Chest x-ray showed questionable infiltrative process and has elevated D-dimer but CTA ruled out pulmonary embolism with airspace disease/opacities consistent with Covid but her rapid Covid 19 is negative. Initial troponins are 1.48. After receiving contrast dye for CTA patient has difficulty breathing and was given Solu-Medrol along with Benadryl and repeated dose of morphine which improved her pain. With elevated troponin and active chest pain and negative PE study I believe patient has NSTEMI and needs cardiology evaluation and possible cardiac cath. I have discussed with Dr. Aguillon at [place] [facility], reviewed history, work-up, recommended starting on heparin and [facility]. 05/02/21 18:[address] Page at [facility], reviewed history, work-up and cardiology recommendation and patient is accepted for transfer. Plan discussed with patient and family who understand and agree with it. Antibiotics given: No Discussed with Dr.: Other (Charanjit Aguillon microbiology laboratory manager at [place]) Counseled pt/family regarding: lab results, diagnosis, rad results - Departure Departure Disposition: Transfer Clinical Impression: NSTEMI (non-ST elevated myocardial infarction) Condition: Stable Critical Care Time: Yes Critical Care Time(excluding separately billable procedures): Critical 30-74 mins Referrals: HILTON STEVEN MD [Primary Care Provider] - Follow up/PCP as directed
--- NOTE | 2021-05-02 15:19 | XRAY ---
Indication: Chest pain. Comparison: February 07, 2016. Portable chest demonstrates new subtle right infrahilar infiltrate versus atelectasis. Remaining heart, lungs, and bony thorax normal.
[2021-05-02 15:28] LABS: Absolute Neutrophil Ct (ANC) 4.93 (1.4-6.9); Basophil (Absolute #) 0.04 (0-0.4); Eosinophil % 3.2 % (0.00-5.0); Eosinophil (Absolute #) 0.28 (0-0.5); Hematocrit 36.4 % (35-47); Hemoglobin 11.7 gm/dl (12.0-16.0); Lymphocyte (Absolute #) 2.85 (1.0-4.6); Lymphocytes % 32.9 % (24.0-44.0); Mean Cell Volume 90.3 fl (78-100); Mean Corpuscular Hgb Concent. 32.1 g/dl (32-36); Mean Platelet Volume 9.5 fl (7.5-11.0); Monocyte (Absolute #) 0.56 (0.0-1.3); Monocytes % 6.5 % (0.0-12.0); Neutrophil % 56.9 % (36.0-66.0); Platelet Count 295 K/mm3 (150-450); Red Blood Count 4.03 M/mm3 (4.1-5.4); Red Cell Distribution Width 13.5 % (11.5-14.0); White Blood Count 8.7 K/mm3 (4.0-10.5)
[2021-05-02 15:53] LABS: ALKALINE PHOSPHATASE 87 U/L (38-126); ANION GAP 10.8 MEQ/L (5-15); BLOOD UREA NITROGEN 21 mg/dL (7-17); CHLORIDE 106 mmol/L (98-107); Calcium 9.1 mg/dL (8.4-10.2); Carbon Dioxide 28 mmol/L (22-30); Creatinine 1 1.02 mg/dL (0.52-1.04); EST GLOMERULAR FILTRATION RATE > 60.0 ML/MIN; Glucose 105 mg/dL (74-106); NT PRO BNP 157 pg/mL (0-900); Potassium 4.6 mmol/L (3.5-5.1); SGOT/AST 25 U/L (14-36); SGPT/ALT 22 U/L (0-35); SODIUM 140 mmol/L (137-145); Total Protein 7.3 g/dL (6.3-8.2)
[2021-05-02] MEDS ORDERED: NITRO-BID 2% UD PACKETS ONE (16:52)
[2021-05-02] MEDS ORDERED: DUONEB 0.5-3 MG/3 ml Neb IH ONE ×2 (16:56→17:14)
[2021-05-02] MEDS ORDERED: Sterile H2O 10 ml IJ ONE (16:57)
[2021-05-02] MEDS ORDERED: BENADRYL 50 MG/ML ONE (16:57)
[2021-05-02] MEDS ORDERED: solu-MEDROL ONE (16:57)
--- NOTE | 2021-05-02 17:06 | XRAY ---
Indication: Chest pain. Elevated d-dimer. Multiple contiguous axial images obtained through the chest using 100 cc Isovue 370 contrast and PE protocol. Comparison: None There is adequate opacification of the pulmonary arteries to include the lobar and segmental branches. No pulmonary embolus. Heart not enlarged. Aorta is normal in course and caliber. Small left hilar calcified nodes. No pathologic mediastinal/hilar lymphadenopathy. Small hiatal hernia. Lungs demonstrates subtle diffuse bilateral peripheral groundglass opacities greatest right lower lobe. No suspicious pulmonary mass, consolidation, or effusion. Bony thorax intact with incidental small L1 bone island. Limited upper abdomen demonstrates fatty replaced pancreas and tiny splenic calcified granulomas. Impression: 1. Negative pulmonary embolus. 2. Subtle diffuse bilateral peripheral groundglass airspace disease. Commonly reported imaging features of Covid 19 pneumonia are present. Other processes such as influenza pneumonia and organizing pneumonia, as can be seen with drug toxicity and connective tissue disease, can cause a similar imaging pattern. 3. Incidental small hiatal hernia and old granulomatous disease.
[2021-05-02] MEDS ORDERED: MORPHINE SULFATE 4 MG INJ ONE ×2 (17:36→19:00)
[2021-05-02] MEDS ORDERED: Zofran 4 MG/2 ML VIAL ONE (17:36)
[2021-05-02 17:38] LABS: COVID AG -BINAX NOW RAPID TEST NEGATIVE (NEGATIVE)
[2021-05-02] MEDS ORDERED: BENADRYL 50 MG/ML IV ONE (17:42)
[2021-05-02] MEDS ORDERED: solu-MEDROL 125 MG, Sterile H2O 10 ml 2 ML IV ONE ×2 (17:42)
[2021-05-02] MEDS ORDERED: Zofran 4 MG/2 ML VIAL IV ONE (17:43)
[2021-05-02] MEDS ORDERED: Heparin 5000 UNITS/0.5 ML (HIGH RISK MED) IV ONE (18:28)
[2021-05-02] MEDS ORDERED: Heparin 25,000 units/D5W 250ML PREMIX 25,000 UNITS/250 ML BAG IV SCH (18:30)
[2021-05-02 18:47] LABS: INR 1.08 (0.8-3.0); PROTIME 12.8 SECONDS (9.4-12.5)
[2021-05-02 18:50] LABS: PTT 31.2 SECONDS (25.1-36.5)
[2021-05-02] MEDS ORDERED: MORPHINE SULFATE 4 MG INJ IV ONE (18:56)
[2021-05-02] MEDS ORDERED: Heparin 5000 UNITS/0.5 ML (HIGH RISK MED) ONE (19:00)
[2021-05-02] MEDS ORDERED: Heparin 25,000 units/D5W 250ML PREMIX 25,000 UNITS/250 ML BAG IV ONE (19:09)
[2021-05-02 20:21] VITALS: BP 119/67; PULSE 87
[2021-05-03] MEDS ORDERED: MORPHINE SULFATE 4 MG INJ IV ONE (06:59)
[2021-05-04 14:07] VITALS: O2SAT 100
== END 2021-05-02 20:44 | disposition short-term general hospital (02) ==
LOC: ED 14:44
DX: I21.4 Non-ST elevation (NSTEMI) myocardial infarction (principal); I10 Essential (primary) hypertension; E11.9 Type 2 diabetes mellitus without complications; Z79.84 Long term (current) use of oral hypoglycemic drugs
CPT/HCPCS: 36000; 36415; 71045; 71260; 80053; 83735; 83880; 84484; 85025; 85379; 85610; 85730; 93005; 93041; 94640; 96374; 96375; 99000; 99285; 99291; J1200; J1644; J2270; J2405; J2930; A9270-GY

== ENCOUNTER 2022-06-09 11:46 | Emergency (ER) | payer BC ==
--- NOTE | 2022-06-09 12:33 | ERPHSYRPT ---
- History of Present Illness Time Seen by Provider: 06/09/22 12:33 Historian: patient, family Exam Limitations: no limitations Patient Subjective Stated Complaint: " I had some blood in my urine on Thursday and my right lower back hurts around to the front side. I don't know if I'm backed up or if I got a kidney stone or what". Triage Nursing Assessment: Pt presents to ER with complaints of right sided flank pain since Thursday. Pt states pain is 8/10 scale and states pain has been constant and increasingly worse. Pt is alert and oriented x 3. Skin is pink, warm, and dry. Respirations are easy. Pt complains of nausea, denies vomiting or diarrhea. States a trace of blood in urine on Thursday. Hx of ovarian cysts and kidney stones. Physician History: This is an obese 52-year-old white female who noticed her urine 2 days ago. She also had associated right flank pain for 2 days. Patient has a history of diabetes and hypertension. Today the pain became more constant. She said no nausea vomiting or diarrhea. She does have a history of kidney stones and ovarian cysts. She has no chest pain or shortness of breath. Timing/Duration: day(s) (2) Activities at Onset: none Abdominal Pain Onset Location: flank (Right) Pain Radiation: RLQ Severity of Pain-Max: moderate Severity of Pain-Current: moderate Modifying Factors: Improves With: nothing Associated Symptoms: denies symptoms Previous symptoms: no prior history Allergies/Adverse Reactions: Penicillins Allergy (Verified 06/09/22 12:18) Sulfa (Sulfonamide Antibiotics) Allergy (Verified 06/09/22 12:18) codeine Adverse Reaction (Verified 06/09/22 12:18) Vomiting Home Medications: Sitagliptin Phos/Metformin HCl [Janumet 50-500 mg Tablet] 1 each PO DAILY 07/07/13 [History] Clonazepam 0.5 mg [Klonopin 0.5 MG] 0.5 mg PO BID 12/22/17 [History] estradioL [Vagifem] 10 mcg VG DAILY 10/23/20 [History] Carvedilol 3.125 mg [Coreg 3.125 MG] 1 tab PO DAILY 06/09/22 [History] Semaglutide [Ozempic] 1 dose SQ WEEKLY 06/09/22 [History] Hx Tetanus, Diphtheria Vaccination/Date Given: No Hx Influenza Vaccination/Date Given: No Hx Pneumococcal Vaccination/Date Given: No Immunizations Up to Date: No Travel Risk - International Travel Have you traveled outside of the country in past 3 weeks: No - Coronavirus Screening Are you exhibiting any of the following symptoms?: No Close contact with a COVID-19 positive Pt in past 14-21 Days: No - Vaccine Status Have you recieved a Covid-19 vaccination: Yes 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[employer] - Vaccination Dates Comment: booster of JJ - Review of Systems Constitutional: No Symptoms Eyes: No Symptoms Ears, Nose, & Throat: No Symptoms Respiratory: No Symptoms Cardiac: No Symptoms Abdominal/Gastrointestinal: Abdominal Pain (Lower quadrant) Genitourinary Symptoms: Hematuria, Flank Pain (Right flank) Musculoskeletal: No Symptoms Skin: No Symptoms Neurological: No Symptoms, Sensory Changes Psychological: No Symptoms Endocrine: No Symptoms Hematologic/Lymphatic: No Symptoms Immunological/Allergic: No Symptoms All Other Systems: Reviewed and Negative - Past Medical History Pertinent Past Medical History: Yes Neurological History: No Pertinent History ENT History: No Pertinent History Cardiac History: Hypertension, Myocardial Infarction ([place]) Respiratory History: Asthma Endocrine Medical History: Diabetes Type II Musculoskeletal History: No Pertinent History GI Medical History: Diverticulitis History: Other Psycho-Social History: No Pertinent History Female Reproductive Disorders: No Pertinent History Other Medical History: kidney stones, ovarian cysts - Past Surgical History Past Surgical History: Yes Neuro Surgical History: No Pertinent History Cardiac: Cardiac Catheterization Respiratory: No Pertinent History Gastrointestinal: No Pertinent History Genitourinary: Other Musculoskeletal: No Pertinent History Female Surgical History: Section Other Surgical History: pre cancerous bladder cell removal - Social History Smoking Status: Never smoker Exposure to second hand smoke: No Drug Use: none Patient Lives Alone: No Significant Family History: no pertinent family hx - Nursing Vital Signs Nursing Vital Signs: Initial Vital Signs Temperature 97.5 F 06/09/22 12:11 Pulse Rate 81 06/09/22 12:11 Respiratory Rate 20 06/09/22 12:11 Blood Pressure 140/67 06/09/22 12:11 O2 Sat by Pulse Oximetry 99 06/09/22 12:11 Pain Scale Pain Intensity 6 - Physical Exam General Appearance: no apparent distress, alert, anxiety, obese Eye Exam: PERRL/EOMI, eyes nml inspection Ears, Nose, Throat Exam: normal ENT inspection, moist mucous membranes Neck Exam: normal inspection, non-tender, supple, full range of motion Respiratory Exam: normal breath sounds, lungs clear, airway intact, No chest tenderness, No respiratory distress Cardiovascular Exam: regular rate/rhythm, normal heart sounds, normal peripheral pulses Gastrointestinal/Abdomen Exam: soft, normal bowel sounds, tenderness (Right lower quadrant) Pelvic Exam: not done Rectal Exam: not done Back Exam: normal inspection, normal range of motion, CVA tenderness (Right), No vertebral tenderness Extremity Exam: normal inspection, normal range of motion, pelvis stable Neurologic Exam: alert, oriented x 3, cooperative, 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, normal mood/affect, nml cerebellar function, nml station & gait, sensation nml Skin Exam: normal color, warm, dry Lymphatic Exam: No adenopathy SpO2 Interpretation: normal SpO2: 99 O2 Delivery: Room Air - Course Nursing assessment & vital signs reviewed: Yes Ordered Tests: Active Orders 24 hr Category Date Time Status IV Insertion STAT Care 06/09/22 13:12 Active ABDOMEN AND PELVIS W/0 CONTRAS [CT] Stat Exams 06/09/22 13:13 Completed AMYLASE Stat Lab 06/09/22 13:17 Completed CBC W DIFF Stat Lab 06/09/22 13:17 Completed CMP Stat Lab 06/09/22 13:17 Completed HCG,QUALITATIVE URINE Stat Lab 06/09/22 13:35 Completed LIPASE Stat Lab 06/09/22 13:17 Completed UA W/RFX UR CULTURE Stat Lab 06/09/22 12:24 Completed Medication Summary Discontinued Medications Generic Name Dose Route Start Last Admin Trade Name Purnima PRN Reason Stop Dose Admin Hydromorphone HCl 1 mg 06/09/22 13:12 06/09/22 13:59 Hydromorphone 1 Mg/1ml Inj 1 Mg/Ml Syringe IV 06/09/22 13:13 Not Given STAT ONE Hydromorphone HCl Confirm 06/09/22 13:17 Hydromorphone 1 Mg/1ml Inj 1 Mg/Ml Syringe Administered 06/09/22 13:18 Dose 1 mg .ROUTE .STK-MED ONE Sodium Chloride 1,000 mls @ 999 mls/hr 06/09/22 13:12 06/09/22 14:23 Sodium Chloride 0.9% 1000 Ml IV 06/09/22 14:12 Infused .Q1H1M STA Infusion Sodium Chloride Confirm 06/09/22 13:17 Sodium Chloride 0.9% 1000 Ml Administered 06/09/22 13:18 Dose 1,000 mls @ ud .ROUTE .STK-MED ONE Ketorolac Tromethamine 30 mg 06/09/22 13:12 06/09/22 13:23 Ketorolac Tromethamine 30 Mg/Ml Inj IV 06/09/22 13:13 30 mg STAT ONE Administration Ketorolac Tromethamine Confirm 06/09/22 13:17 Ketorolac Tromethamine 30 Mg/Ml Inj Administered 06/09/22 13:18 Dose 30 mg .ROUTE .STK-MED ONE Morphine Sulfate 4 mg 06/09/22 14:00 06/09/22 14:09 Morphine Sulfate 4 Mg/Ml Injection IV 06/09/22 14:01 4 mg STAT ONE Administration Morphine Sulfate Confirm 06/09/22 14:08 Morphine Sulfate 4 Mg/Ml Injection Administered 06/09/22 14:09 Dose 4 mg .ROUTE .STK-MED ONE Ondansetron HCl 4 mg 06/09/22 13:12 06/09/22 13:21 Ondansetron Hcl 4 Mg/2 Ml Vial IV 06/09/22 13:13 4 mg STAT ONE Administration Ondansetron HCl Confirm 06/09/22 13:17 Ondansetron Hcl 4 Mg/2 Ml Vial Administered 06/09/22 13:18 Dose 4 mg .ROUTE .STK-MED ONE Lab/Rad Data: Laboratory Result Diagrams 06/09/22 13:17 06/09/22 13:17 Laboratory Results 06/09/22 06/09/22 06/09/22 Range/Units 13:35 13:17 13:17 WBC 7.7 (4.0-10.5) x10^3/uL RBC 4.00 L (4.1-5.4) x10^6/uL Hgb 11.4 L (12.0-16.0) g/dL Hct 34.4 L (35-47) % MCV 86.0 (78-100) fL MCH 28.5 (26-32) pg MCHC 33.1 (32-36) g/dL RDW 13.1 (11.5-14.0) % Plt Count 304 (150-450) x10^3/uL MPV 9.5 (7.5-11.0) fL Gran % 54.3 (36.0-66.0) % Immature Gran % (Auto) 0.1 (0.00-0.4) % Nucleat RBC Rel Count 0.0 (0.00-0.1) % Eos # (Auto) 0.20 (0-0.5) x10^3/uL Immature Gran # (Auto) 0.01 (0.00-0.03) x10^3u/L Absolute Lymphs (auto) 2.87 (1.0-4.6) x10^3/uL Absolute Monos (auto) 0.41 (0.0-1.3) x10^3/uL Absolute Nucleated RBC 0.00 (0.00-0.01) x10^3u/L Lymphocytes % 37.3 (24.0-44.0) % Monocytes % 5.3 (0.0-12.0) % Eosinophils % 2.6 (0.00-5.0) % Basophils % 0.4 (0.0-0.4) % Absolute Granulocytes 4.18 (1.4-6.9) x10^3/uL Basophils # 0.03 (0-0.4) x10^3/uL Sodium 139 (137-145) mmol/L Potassium 4.2 (3.5-5.1) mmol/L Chloride 106 (98-107) mmol/L Carbon Dioxide 24 (22-30) mmol/L Anion Gap 12.4 (5-15) MEQ/L BUN 24 H (7-17) mg/dL Creatinine 0.89 (0.52-1.04) mg/dL Estimated GFR > 60.0 ML/MIN Glucose 155 H (74-106) mg/dL Calcium 8.8 (8.4-10.2) mg/dL Total Bilirubin 0.30 (0.2-1.3) mg/dL AST 25 (14-36) U/L ALT 25 (0-35) U/L Alkaline Phosphatase 96 (38-126) U/L Serum Total Protein 7.3 (6.3-8.2) g/dL Albumin 4.0 (3.5-5.0) g/dL Amylase 50 (30-110) U/L Lipase 43 (23-300) U/L Urine Color (Yellow) Urine Appearance (Clear) Urine pH (4.6-8.0) Ur Specific [place] (1.005-1.030) Urine Protein (Negative) Urine Glucose (UA) (Negative) mg/dL Urine Ketones (Negative) Urine Blood (Negative) Urine Nitrite (Negative) Urine Bilirubin (Negative) Urine Urobilinogen (0.2) mg/dL Ur Leukocyte Esterase (Negative) U Hyaline Cast (Auto) (0-2) /LPF Urine Microscopic RBC (0-5) /HPF Urine Microscopic WBC (0-5) /HPF Ur Epithelial Cells (None Seen) /HPF Urine Bacteria (None Seen) /HPF Urine Culture Reflexed (NO) Urine HCG, Qual NEGATIVE (Negative) 06/09/22 Range/Units 12:24 WBC (4.0-10.5) x10^3/uL RBC (4.1-5.4) x10^6/uL Hgb (12.0-16.0) g/dL Hct (35-47) % MCV (78-100) fL MCH (26-32) pg MCHC (32-36) g/dL RDW (11.5-14.0) % Plt Count (150-450) x10^3/uL MPV (7.5-11.0) fL Gran % (36.0-66.0) % Immature Gran % (Auto) (0.00-0.4) % Nucleat RBC Rel Count (0.00-0.1) % Eos # (Auto) (0-0.5) x10^3/uL Immature Gran # (Auto) (0.00-0.03) x10^3u/L Absolute Lymphs (auto) (1.0-4.6) x10^3/uL Absolute Monos (auto) (0.0-1.3) x10^3/uL Absolute Nucleated RBC (0.00-0.01) x10^3u/L Lymphocytes % (24.0-44.0) % Monocytes % (0.0-12.0) % Eosinophils % (0.00-5.0) % Basophils % (0.0-0.4) % Absolute Granulocytes (1.4-6.9) x10^3/uL Basophils # (0-0.4) x10^3/uL Sodium (137-145) mmol/L Potassium (3.5-5.1) mmol/L Chloride (98-107) mmol/L Carbon Dioxide (22-30) mmol/L Anion Gap (5-15) MEQ/L BUN (7-17) mg/dL Creatinine (0.52-1.04) mg/dL Estimated GFR ML/MIN Glucose (74-106) mg/dL Calcium (8.4-10.2) mg/dL Total Bilirubin (0.2-1.3) mg/dL AST (14-36) U/L ALT (0-35) U/L Alkaline Phosphatase (38-126) U/L Serum Total Protein (6.3-8.2) g/dL Albumin (3.5-5.0) g/dL Amylase (30-110) U/L Lipase (23-300) U/L Urine Color Yellow (Yellow) Urine Appearance Clear (Clear) Urine pH 5.0 (4.6-8.0) Ur Specific [place] >=1.030 A (1.005-1.030) Urine Protein Negative (Negative) Urine Glucose (UA) Negative (Negative) mg/dL Urine Ketones Negative (Negative) Urine Blood Small A (Negative) Urine Nitrite Negative (Negative) Urine Bilirubin Negative (Negative) Urine Urobilinogen 0.2 (0.2) mg/dL Ur Leukocyte Esterase Negative (Negative) U Hyaline Cast (Auto) NONE SEEN (0-2) /LPF Urine Microscopic RBC 6-10 A (0-5) /HPF Urine Microscopic WBC 0-2 (0-5) /HPF Ur Epithelial Cells Rare (None Seen) /HPF Urine Bacteria None Seen (None Seen) /HPF Urine Culture Reflexed NO (NO) Urine HCG, Qual (Negative) - Progress Progress: improved, pain not gone completely Progress Note: 06/09/22 15:50 CT scan of the abdomen pelvis without contrast shows diverticulosis without diverticulitis. No other acute intra-abdominal or intrapelvic findings. This patient's medical issue is 1 of moderate complexity. The work-up was based on review of the patient's past medical history, medication list and drug allergy list. In addition, we used the history of present illness and the physical findings on examination to determine the work-up of IV line placement, intravenous fluid infusion, morphine infusion and Zofran infusion intravenously. We also ordered a urinalysis, CBC, CMP, amylase and lipase as well as obtaining a CT scan of the abdomen pelvis. I reviewed the results and discussed these findings with the patient and the patient's spouse. The patient does have hematuria and right flank pain. Discharge instructions will include drink plenty of fluids, take the antibiotic of Cipro and the pain medicine of hydrocodone (patient states as long as its not codeine) she can take this medication. She will follow-up with her primary care provider. She can also add ibuprofen if there are no contraindications Counseled pt/family regarding: lab results, diagnosis, need for follow-up, rad results Medical Desision Making - Independent Historian Additional History obtained from: Spouse - Discussion of managment Reviewed:: Test results Agreed on:: Treatment plan, need for follow-up - Diagnostic Testing Diagnostic test were ordered, analyzed, and reviewed by me: Yes Radiological Interpretation: Reviewed by me, Teleradiologist Report - Risk of complications The pt has a mod risk of morbidity or mortality based on: Need for prescription drug management - Departure Departure Disposition: Home Clinical Impression: Hematuria, Right flank pain Condition: Stable Critical Care Time: No Referrals: HILTON STEVEN MD [Primary Care Provider] - Follow up/PCP as directed Additional Instructions: Drink plenty of clear liquid fluids before advancing diet. Follow-up with your prescribing provider for further evaluation and management. Take your antibiotics and pain medicine as prescribed. May add ibuprofen to pain control regimen if there are no contraindications to you taking this medicine. Prescriptions: Hydrocodone/APAP 5/325 [[place] 5/325 mg] 1 each PO Q8H PRN PRN #6 tablet MDD 3 PRN Reason: Pain Ciprofloxacin [Cipro 500 MG] 500 mg PO BID #14 tablet
[2022-06-09 12:58] LABS: Appearance Clear (Clear); Bacteria None Seen /HPF (None Seen); Bilirubin Negative (Negative); Blood Small (Negative); Epithelial Cells Rare /HPF (None Seen); Glucose, Urine Negative (Negative); Hyaline Casts NONE SEEN /LPF (0-2); Ketones Negative (Negative); Leukocyte Esterase Negative (Negative); Nitrite Negative (Negative); Protein,Urine Dip Negative (Negative); Specific Gravity >=1.030 (1.005-1.030); Urobilinogen 0.2 mg/dL (0.2); WBC 0-2 /HPF (0-5)
[2022-06-09 13:06] LABS: ADD URINE CULTURE? NO (NO)
[2022-06-09] MEDS ORDERED: Zofran 4 MG/2 ML VIAL IV ONE (13:12)
[2022-06-09] MEDS ORDERED: Hydromorphone 1 mg/ml Injection IV ONE (13:12)
[2022-06-09] MEDS ORDERED: TORAdol 30 mg Injection IV ONE (13:12)
[2022-06-09] MEDS ORDERED: Sodium Chloride 0.9% 1000 ML 1,000 ML IV STA (13:12)
[2022-06-09] MEDS ORDERED: Sodium Chloride 0.9% 1000 ML 1,000 ML ONE (13:17)
[2022-06-09] MEDS ORDERED: Zofran 4 MG/2 ML VIAL ONE (13:17)
[2022-06-09] MEDS ORDERED: Hydromorphone 1 mg/ml Injection ONE (13:17)
[2022-06-09] MEDS ORDERED: TORAdol 30 mg Injection ONE (13:17)
[2022-06-09 13:19] LABS: Absolute Neutrophil Ct (ANC) 4.18 x10^3/uL (1.4-6.9); BASOPHIL % 0.4 % (0.0-0.4); Basophil (Absolute #) 0.03 x10^3/uL (0-0.4); Eosinophil % 2.6 % (0.00-5.0); Hematocrit 34.4 % (35-47); Hemoglobin 11.4 g/dL (12.0-16.0); IMMATURE GRAN # 0.01 x10^3u/L (0.00-0.03); IMMATURE GRAN % 0.1 % (0.00-0.4); Lymphocyte (Absolute #) 2.87 x10^3/uL (1.0-4.6); Lymphocytes % 37.3 % (24.0-44.0); Mean Corpuscular Hemoglobin 28.5 pg (26-32); Mean Corpuscular Hgb Concent. 33.1 g/dL (32-36); Mean Platelet Volume 9.5 fL (7.5-11.0); Monocyte (Absolute #) 0.41 x10^3/uL (0.0-1.3); Monocytes % 5.3 % (0.0-12.0); Neutrophil % 54.3 % (36.0-66.0); Platelet Count 304 x10^3/uL (150-450); Red Cell Distribution Width 13.1 % (11.5-14.0); White Blood Count 7.7 x10^3/uL (4.0-10.5)
[2022-06-09 13:28] LABS: ALKALINE PHOSPHATASE 96 U/L (38-126); AMYLASE 50 U/L (30-110); ANION GAP 12.4 MEQ/L (5-15); BLOOD UREA NITROGEN 24 mg/dL (7-17); CHLORIDE 106 mmol/L (98-107); Calcium 8.8 mg/dL (8.4-10.2); Carbon Dioxide 24 mmol/L (22-30); Creatinine 1 0.89 mg/dL (0.52-1.04); EST GLOMERULAR FILTRATION RATE > 60.0 ML/MIN; Glucose 155 mg/dL (74-106); LIPASE 43 U/L (23-300); Potassium 4.2 mmol/L (3.5-5.1); SGOT/AST 25 U/L (14-36); SGPT/ALT 25 U/L (0-35); SODIUM 139 mmol/L (137-145); Total Protein 7.3 g/dL (6.3-8.2)
[2022-06-09] MEDS ORDERED: MORPHINE SULFATE 4 MG INJ IV ONE ×2 (14:00→16:20)
[2022-06-09] MEDS ORDERED: MORPHINE SULFATE 4 MG INJ ONE ×2 (14:08→16:36)
--- NOTE | 2022-06-09 14:10 | XRAY ---
Indication: Right flank pain and hematuria. Multiple contiguous axial images obtained through the abdomen and pelvis without contrast using renal stone protocol. Comparison: June 03, 2016 Lung bases clear. Heart not enlarged. No renal calculus or evidence for obstructive uropathy in either system. Stomach is distended with food/fluid. Noncontrasted stomach and bowel loops appear nonobstructed again with normal appendix. Again mild diffuse scattered colonic fecal debris. New minimal descending and sigmoid diverticulosis without diverticulitis. Again incidental fatty-replaced pancreas and splenic calcified granulomas. No free fluid/air. Remaining liver, gallbladder, pancreas, spleen, adrenal glands, kidneys, ureters, bladder, uterus, and aorta are unremarkable for noncontrast exam. Osseous structures intact with stable L1 bone island. Impression: 1. Continued negative renal calculus or evidence for obstructive uropathy. 2. Again mild diffuse fecal stasis. New minimal colonic diverticulosis without diverticulitis. 3. Again incidental fatty-replaced pancreas, L1 bone island, and old granulomatous disease. 4. Remaining CT abdomen/pelvis without contrast exam is again negative.
[2022-06-09 16:16] VITALS: PULSE 78; O2SAT 100
[2022-06-09 16:18] VITALS: BP 135/72
== END 2022-06-09 16:57 | disposition home or self-care (01) ==
LOC: ED 11:46
DX: R31.9 Hematuria, unspecified (principal); R10.9 Unspecified abdominal pain; E11.9 Type 2 diabetes mellitus without complications; I10 Essential (primary) hypertension; Z87.442 Personal history of urinary calculi; Z79.84 Long term (current) use of oral hypoglycemic drugs; Z79.85 Long-term (current) use of injectable non-insulin antidiabetic drugs; Z79.891 Long term (current) use of opiate analgesic; Z79.899 Other long term (current) drug therapy
CPT/HCPCS: 36000; 36415; 74176; 80053; 81001; 81025; 82150; 83690; 85025; 96374; 96375; 96376; 99284; J1170; J1885; J2270; J2405

== ENCOUNTER 2023-03-10 17:59 | Emergency (ER) | payer BC ==
[2023-03-10 18:13] VITALS: TEMP 97.7
[2023-03-10 19:07] LABS: Absolute Neutrophil Ct (ANC) 6.28 x10^3/uL (1.4-6.9); BASOPHIL % 0.2 % (0.0-0.4); Basophil (Absolute #) 0.02 x10^3/uL (0-0.4); Hematocrit 35.7 % (35-47); Hemoglobin 11.5 g/dL (12.0-16.0); IMMATURE GRAN # 0.03 x10^3u/L (0.00-0.03); IMMATURE GRAN % 0.3 % (0.00-0.4); Lymphocyte (Absolute #) 2.76 x10^3/uL (1.0-4.6); Lymphocytes % 28.4 % (24.0-44.0); Mean Cell Volume 89.7 fL (78-100); Mean Corpuscular Hemoglobin 28.9 pg (26-32); Mean Corpuscular Hgb Concent. 32.2 g/dL (32-36); Mean Platelet Volume 9.4 fL (7.5-11.0); Monocyte (Absolute #) 0.54 x10^3/uL (0.0-1.3); Monocytes % 5.5 % (0.0-12.0); Neutrophil % 64.6 % (36.0-66.0); Platelet Count 324 x10^3/uL (150-450); Red Blood Count 3.98 x10^6/uL (4.1-5.4); Red Cell Distribution Width 12.9 % (11.5-14.0); White Blood Count 9.7 x10^3/uL (4.0-10.5)
[2023-03-10] MEDS ORDERED: BABY ASPIRIN 81 MG CHEW PO ONE (19:15)
[2023-03-10] MEDS ORDERED: NITRO-BID 2% UD PACKETS TOP ONE (19:15)
--- NOTE | 2023-03-10 19:17 | ERPHSYRPT ---
- History of Present Illness Time Seen by Provider: 03/10/23 18:10 Historian: patient Exam Limitations: no limitations Patient Subjective Stated Complaint: C/O Chest Pain that started at around 11am today whenever she got into an arguement with her boss. Triage Nursing Assessment: Patient ambulated back to ER without difficulties. NO SOB. No cough. She is alert and oriented. Skin tone normal. No edema. MINER WNL. Physician History: Patient is a 52-year-old female presents to the emergency department for evaluation of chest pain. Patient states pain started at approximately 11 AM as she was arguing with her boss. Pain described as an ache that is substernal radiating to her neck. Patient states she has had a cardiac cath in the past. Most recent cardiac cath was 2 years ago. She has no cardiac stents. This pain is constant. His pain is moderate in intensity. No specific worsening improving factors. Patient voices no other complaints or concerns at this time. Portions of this note were created with voice recognition technology. There may be grammatical, spelling, punctuation or sound alike errors Timing/Duration: today Activities at Onset: emotional stress Quality: aching Location: substernal Chest Pain Radiation: neck Severity of Pain-Max: moderate Severity of Pain-Current: mild Modifying Factors: Improves With: nothing Associated Symptoms: denies symptoms Prior Chest Pain/Cardiac Workup: cardiac cath Nitro Today/Relief: no nitro taken today Aspirin Treatment Today: no aspirin today Allergies/Adverse Reactions: Penicillins Allergy (Verified 03/10/23 17:59) Sulfa (Sulfonamide Antibiotics) Allergy (Verified 03/10/23 17:59) codeine Adverse Reaction (Verified 03/10/23 17:59) Vomiting Home Medications: Duloxetine HCl 30 mg [Cymbalta 30 MG Capsule] 1 cap PO DAILY 03/10/23 [History] Esomeprazole Magnesium [Nexium 24Hr] 40 mg PO DAILY 03/10/23 [History] Losartan Potassium 50 mg [Cozaar 50 MG] 1 tab PO DAILY 03/10/23 [History] Meloxicam 1 tab PO DAILY 03/10/23 [History] Potassium Chloride 1 tab PO DAILY 03/10/23 [History] Sitagliptin Phos/Metformin HCl [Janumet Xr 100-1,000 mg Tablet] 50 - 1,000 mg PO BID 12/05/23 [History] clonazePAM [Clonazepam] 1 tab PO BID 03/10/23 [History] Hx Tetanus, Diphtheria Vaccination/Date Given: Yes Hx Influenza Vaccination/Date Given: Yes Hx Pneumococcal Vaccination/Date Given: No Travel Risk - International Travel Have you traveled outside of the country in past 3 weeks: No - Coronavirus Screening Are you exhibiting any of the following symptoms?: No Close contact with a COVID-19 positive Pt in past 14-21 Days: No - Vaccine Status Have you recieved a Covid-19 vaccination: Yes 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[employer] - Vaccination Dates Comment: booster of JJ - Review of Systems Constitutional: No Symptoms, No Fever, No Chills Eyes: No Symptoms Ears, Nose, & Throat: No Symptoms Respiratory: No Symptoms, No Cough, No Dyspnea Cardiac: No Symptoms, No Chest Pain, No Edema, No Syncope Abdominal/Gastrointestinal: No Symptoms, No Abdominal Pain, No Nausea, No Vomiting, No Diarrhea Genitourinary Symptoms: No Symptoms, No Dysuria Musculoskeletal: No Symptoms, No Back Pain, No Neck Pain Skin: No Symptoms, No Rash Neurological: No Symptoms, No Dizziness, No Focal Weakness, No Sensory Changes Psychological: No Symptoms Endocrine: No Symptoms Hematologic/Lymphatic: No Symptoms Immunological/Allergic: No Symptoms All Other Systems: Reviewed and Negative - Past Medical History Pertinent Past Medical History: Yes Neurological History: No Pertinent History ENT History: No Pertinent History Cardiac History: Hypertension, Myocardial Infarction ([place]) Respiratory History: Asthma Endocrine Medical History: Diabetes Type II Musculoskeletal History: No Pertinent History GI Medical History: Diverticulitis History: Other Psycho-Social History: No Pertinent History Female Reproductive Disorders: No Pertinent History Other Medical History: kidney stones, ovarian cysts - Past Surgical History Past Surgical History: Yes Neuro Surgical History: No Pertinent History Cardiac: Cardiac Catheterization Respiratory: No Pertinent History Gastrointestinal: No Pertinent History Genitourinary: Other Musculoskeletal: No Pertinent History Female Surgical History: Section Other Surgical History: pre cancerous bladder cell removal - Social History Smoking Status: Never smoker Exposure to second hand smoke: No Drug Use: none Patient Lives Alone: No Significant Family History: no pertinent family hx - Nursing Vital Signs Nursing Vital Signs: Initial Vital Signs Temperature 97.7 F 03/10/23 17:59 Pulse Rate 83 03/10/23 17:59 Respiratory Rate 14 03/10/23 17:59 Blood Pressure 137/76 03/10/23 17:59 O2 Sat by Pulse Oximetry 97 03/10/23 17:59 Pain Scale Pain Intensity 0 - Physical Exam General Appearance: no apparent distress, alert Eye Exam: PERRL/EOMI, eyes nml inspection Ears, Nose, Throat Exam: normal ENT inspection, moist mucous membranes Neck Exam: normal inspection, non-tender, supple, full range of motion Respiratory Exam: normal breath sounds, lungs clear, airway intact, No respiratory distress Cardiovascular Exam: regular rate/rhythm, normal heart sounds, normal peripheral pulses Gastrointestinal/Abdomen Exam: soft, No tenderness, No mass Back Exam: normal inspection, No CVA tenderness, No vertebral tenderness Extremity Exam: normal inspection, normal range of motion Neurologic Exam: alert, oriented x 3, cooperative, normal mood/affect, sensation nml, No motor deficits Skin Exam: normal color, warm, dry Lymphatic Exam: No adenopathy SpO2 Interpretation: normal SpO2: 96 O2 Delivery: Room Air - Course Nursing assessment & vital signs reviewed: Yes EKG Interpreted by Me: RATE (83), Sinus Rhythm, NORMAL AXIS, NORMAL INTERVALS - CT Exams Chest CT Interpretation: Tele-radiologist Report (CTA chest negative for PE) Ordered Tests: Active Orders 24 hr Category Date Time Status Electron Beam Operator STAT Care 03/10/23 18:22 Active EKG-ER Only STAT Care 03/10/23 18:21 Active EKG-ER Only STAT Care 03/10/23 20:26 Active IV Insertion STAT Care 03/10/23 18:21 Active Pulse Oximetry (ED) STAT Care 03/10/23 18:21 Active CHEST WITH CONTRAST [CT] Stat Exams 03/10/23 19:57 Taken CBC Q48H Lab 03/11/23 06:00 Ordered CBC Q48H Lab 03/13/23 06:00 Ordered CBC Q48H Lab 03/15/23 06:00 Ordered CBC Q48H Lab 03/17/23 06:00 Ordered CBC Q48H Lab 03/19/23 06:00 Ordered CBC Q48H Lab 03/21/23 06:00 Ordered CBC Q48H Lab 03/23/23 06:00 Ordered CBC W DIFF Stat Lab 03/10/23 19:00 Completed CMP Stat Lab 03/10/23 19:00 Completed D-DIMER QUANTITATIVE Stat Lab 03/10/23 19:00 Completed NT PRO BNPII Stat Lab 03/10/23 19:00 Completed PROTIME WITH INR Stat Lab 03/10/23 19:55 Completed PTT Q4H Lab 03/11/23 01:30 Ordered PTT Q4H Lab 03/11/23 05:30 Ordered PTT Q4H Lab 03/11/23 09:30 Ordered PTT Q4H Lab 03/11/23 13:30 Ordered PTT Q4H Lab 03/11/23 17:30 Ordered PTT Q4H Lab 03/11/23 21:30 Ordered PTT Q4H Lab 03/12/23 01:30 Ordered PTT Q4H Lab 03/12/23 05:30 Ordered PTT Q4H Lab 03/12/23 09:30 Ordered PTT Q4H Lab 03/12/23 13:30 Ordered PTT Q4H Lab 03/12/23 17:30 Ordered PTT Stat Lab 03/10/23 19:55 Completed TROPONIN Q4H Lab 03/10/23 19:00 Completed TROPONIN Q4H Lab 03/10/23 22:30 Ordered TROPONIN Q4H Lab 03/11/23 02:30 Ordered Medication Summary Generic Name Dose Route Start Last Admin Trade Name Freq PRN Reason Stop Dose Admin Nitroglycerin/Dextrose 250 mls @ 1.5 mls/hr 03/10/23 21:24 03/10/23 22:03 Ntg 0.2mg/Ml In D5w Glass IV 04/09/23 21:23 5 mcg/min .Q24H PRN 1.5 mls/hr CHEST PAIN Administration Protocol 5 MCG/MIN Heparin Sodium/Dextrose 25,000 units in 250 mls @ 12.144 mls/hr 03/10/23 21:30 03/10/23 22:00 Heparin 25,000 Units/D5w: Use Order Set Macy IV 04/09/23 21:29 12 units/kg/hr .[id number] MANJULA 12.144 mls/hr Administration Protocol 12 UNITS/KG/HR Discontinued Medications Generic Name Dose Route Start Last Admin Trade Name Freq PRN Reason Stop Dose Admin Aspirin 324 mg 03/10/23 19:15 03/10/23 19:26 Aspirin 81 Mg Tab.Chew PO 03/10/23 19:16 324 mg STAT ONE Administration Aspirin Confirm 03/10/23 19:24 Aspirin 81 Mg Tab.Chew Administered 03/10/23 19:25 Dose 324 mg .ROUTE .STK-MED ONE Methylprednisolone Sodium 0 mg 03/10/23 20:27 03/10/23 20:34 Succinate 125 mg/ Sterile IV 03/10/23 20:28 125 mg Water 2 ml STAT ONE Administration Diphenhydramine HCl 50 mg 03/10/23 20:31 03/10/23 20:34 Diphenhydramine Hcl 50 Mg/Ml Vial IV 03/10/23 20:32 50 mg STAT ONE Administration Diphenhydramine HCl Confirm 03/10/23 20:33 Diphenhydramine Hcl 50 Mg/Ml Vial Administered 03/10/23 20:34 Dose 50 mg .ROUTE .STK-MED ONE Heparin Sodium (Beef Lung) 5,000 unit 03/10/23 21:24 03/10/23 22:00 Heparin 5000 Units/0.5 Ml 5,000 Unit/0.5 Ml Syr IV 03/10/23 21:25 5,000 unit STAT STA Administration Heparin Sodium (Beef Lung) Confirm 03/10/23 21:53 Heparin 5000 Units/0.5 Ml 5,000 Unit/0.5 Ml Syr Administered 03/10/23 21:54 Dose 5,000 unit .ROUTE .STK-MED ONE Methylprednisolone Sodium Succinate Confirm 03/10/23 20:33 Methylprednis Sod Succ 125 Mg/2 Ml Vial Administered 03/10/23 20:34 Dose 125 mg .ROUTE .STK-MED ONE Nitroglycerin 1 gm 03/10/23 19:15 03/10/23 19:26 Nitroglycerin 1 Gm Packet TOP 03/10/23 19:16 1 gm STAT ONE Administration Nitroglycerin Confirm 03/10/23 19:25 Nitroglycerin 1 Gm Packet Administered 03/10/23 19:26 Dose 1 gm .ROUTE .STK-MED ONE Sterile Water Confirm 03/10/23 20:33 Water For Injection,Sterile 10 Ml Vial Administered 03/10/23 20:34 Dose 10 ml IJ .STK-MED ONE Lab/Rad Data: Laboratory Result Diagrams 03/10/23 19:00 03/10/23 19:00 Laboratory Results 03/10/23 03/10/23 03/10/23 Range/Units 19:55 19:00 19:00 WBC (4.0-10.5) x10^3/uL RBC (4.1-5.4) x10^6/uL Hgb (12.0-16.0) g/dL Hct (35-47) % MCV (78-100) fL MCH (26-32) pg MCHC (32-36) g/dL RDW (11.5-14.0) % Plt Count (150-450) x10^3/uL MPV (7.5-11.0) fL Gran % (36.0-66.0) % Immature Gran % (Auto) (0.00-0.4) % Nucleat RBC Rel Count (0.00-0.1) % Eos # (Auto) (0-0.5) x10^3/uL Immature Gran # (Auto) (0.00-0.03) x10^3u/L Absolute Lymphs (auto) (1.0-4.6) x10^3/uL Absolute Monos (auto) (0.0-1.3) x10^3/uL Absolute Nucleated RBC (0.00-0.01) x10^3u/L Lymphocytes % (24.0-44.0) % Monocytes % (0.0-12.0) % Eosinophils % (0.00-5.0) % Basophils % (0.0-0.4) % Absolute Granulocytes (1.4-6.9) x10^3/uL Basophils # (0-0.4) x10^3/uL PT 10.9 (9.4-12.5) SECONDS INR 1.00 (0.8-3.0) APTT 25.3 (25.1-36.5) SECONDS D-Dimer 0.89 H* (0.0-0.50) mg/L Sodium (137-145) mmol/L Potassium (3.5-5.1) mmol/L Chloride (98-107) mmol/L Carbon Dioxide (22-30) mmol/L Anion Gap (5-15) MEQ/L BUN (7-17) mg/dL Creatinine (0.52-1.04) mg/dL Estimated GFR ML/MIN Glucose (74-106) mg/dL Calcium (8.4-10.2) mg/dL Total Bilirubin (0.2-1.3) mg/dL AST (14-36) U/L ALT (0-35) U/L Alkaline Phosphatase (38-126) U/L Troponin I 2.080 H* (0.000-0.034) ng/mL NT-Pro-B Natriuret Pep (<300) pg/mL Serum Total Protein (6.3-8.2) g/dL Albumin (3.5-5.0) g/dL 03/10/23 03/10/23 Range/Units 19:00 19:00 WBC 9.7 (4.0-10.5) x10^3/uL RBC 3.98 L (4.1-5.4) x10^6/uL Hgb 11.5 L (12.0-16.0) g/dL Hct 35.7 (35-47) % MCV 89.7 (78-100) fL MCH 28.9 (26-32) pg MCHC 32.2 (32-36) g/dL RDW 12.9 (11.5-14.0) % Plt Count 324 (150-450) x10^3/uL MPV 9.4 (7.5-11.0) fL Gran % 64.6 (36.0-66.0) % Immature Gran % (Auto) 0.3 (0.00-0.4) % Nucleat RBC Rel Count 0.0 (0.00-0.1) % Eos # (Auto) 0.10 (0-0.5) x10^3/uL Immature Gran # (Auto) 0.03 (0.00-0.03) x10^3u/L Absolute Lymphs (auto) 2.76 (1.0-4.6) x10^3/uL Absolute Monos (auto) 0.54 (0.0-1.3) x10^3/uL Absolute Nucleated RBC 0.00 (0.00-0.01) x10^3u/L Lymphocytes % 28.4 (24.0-44.0) % Monocytes % 5.5 (0.0-12.0) % Eosinophils % 1.0 (0.00-5.0) % Basophils % 0.2 (0.0-0.4) % Absolute Granulocytes 6.28 (1.4-6.9) x10^3/uL Basophils # 0.02 (0-0.4) x10^3/uL PT (9.4-12.5) SECONDS INR (0.8-3.0) APTT (25.1-36.5) SECONDS D-Dimer (0.0-0.50) mg/L Sodium 137 (137-145) mmol/L Potassium 3.8 (3.5-5.1) mmol/L Chloride 106 (98-107) mmol/L Carbon Dioxide 24 (22-30) mmol/L Anion Gap 11.4 (5-15) MEQ/L BUN 21 H (7-17) mg/dL Creatinine 0.81 (0.52-1.04) mg/dL Estimated GFR 86.8 ML/MIN Glucose 156 H (74-106) mg/dL Calcium 8.8 (8.4-10.2) mg/dL Total Bilirubin 0.30 (0.2-1.3) mg/dL AST 31 (14-36) U/L ALT 23 (0-35) U/L Alkaline Phosphatase 84 (38-126) U/L Troponin I (0.000-0.034) ng/mL NT-Pro-B Natriuret Pep 445 (<300) pg/mL Serum Total Protein 7.0 (6.3-8.2) g/dL Albumin 3.8 (3.5-5.0) g/dL - Progress Progress: improved Air Movement: good Progress Note: Patient has had IV contrast in the past without any problems. However she states there was 1 episode which she developed shortness of breath however she is not sure whether or not it was related to the contrast dye versus an acute medical condition for which she was being treated. Therefore patient premedica lianna prior to CTA chest using Solu-Medrol and 50 mg of Benadryl IV 03/10/23 20:33 Patient returned from CAT scan. Patient drowsy likely due to the Benadryl. CT scan chest compared to 05/02/2021 continued negative for PE. No new acute findings 03/10/23 22:10 52-year-old female presents to our ED for evaluation of chest pain radiating to her left jaw. EKG upon presentation showed normal sinus rhythm. No STEMI. D- dimer positive. CTA chest negative for PE. CBC CMP essentially nonremarkable. Initial troponin +2.080. Heparin drip and nitro drip initiated. Patient received aspirin as well. Patient auto accepted by [facility]. Patient will be transferred medication infusing Portions of this note were created with voice recognition technology. There may be grammatical, spelling, punctuation or sound alike errors Complexity of problems addressed is high severe exacerbation with threat to bodily function Critical care time is 2 hours. Troponin elevated at 2.0 immediate intervention with heparin and nitro drip initiated to prevent further deterioration Complexity of problems addressed is extensive test ordered test reviewed. Results analyzed and correlated clinically with history and physical examination. We discussed the case with [facility] transfer center auto. Risk of morbidity/mortality of patient management is high. Patient requires hospitalization/transfer to higher level of care. Stable at time of transfer. Time spent to transfer patient is approximately 15 minutes. Plan of care established for shared decision making. Portions of this note were created with voice recognition technology. There may be grammatical, spelling, punctuation or sound alike errors 03/10/23 22:[address] Gamino rooming house keeper at 10:25 PM 03/10/23 22:28 Blood Culture(s) Obtained: No Antibiotics given: No Discussed with Dr.: Other (Dr. Gamino of cardiology) Counseled pt/family regarding: lab results, diagnosis, rad results - Departure Departure Disposition: Transfer Clinical Impression: NSTEMI (non-ST elevated myocardial infarction), Elevated troponin, Chest pain, ACS (acute coronary syndrome) Condition: Stable Critical Care Time: Yes Critical Care Time(excluding separately billable procedures): Critical 105-134 mins Referrals: HILTON STEVEN MD [Primary Care Provider] - Follow up/PCP as directed
[2023-03-10] MEDS ORDERED: BABY ASPIRIN 81 MG CHEW ONE (19:24)
[2023-03-10] MEDS ORDERED: NITRO-BID 2% UD PACKETS ONE (19:25)
[2023-03-10 19:39] LABS: ALBUMIN 3.8 g/dL (3.5-5.0); ANION GAP 11.4 MEQ/L (5-15); BILIRUBIN,TOTAL 0.3 mg/dL (0.2-1.3); Calcium 8.8 mg/dL (8.4-10.2); Creatinine 1 0.81 mg/dL (0.52-1.04); EST GLOMERULAR FILTRATION RATE 86.8 ML/MIN; Potassium 3.8 mmol/L (3.5-5.1)
[2023-03-10] MEDS ORDERED: solu-MEDROL 125 MG, Sterile H2O 10 ml 2 ML IV ONE ×2 (20:27)
[2023-03-10] MEDS ORDERED: BENADRYL 50 MG/ML IV ONE (20:31)
[2023-03-10] MEDS ORDERED: solu-MEDROL ONE (20:33)
[2023-03-10] MEDS ORDERED: Sterile H2O 10 ml IJ ONE (20:33)
[2023-03-10] MEDS ORDERED: BENADRYL 50 MG/ML ONE (20:33)
[2023-03-10] MEDS ORDERED: HEPARIN 5000 UNITS/0.5 ML (HIGH RISK MED) IV STA (21:24)
[2023-03-10] MEDS ORDERED: Ntg 0.2MG/Ml in D5W GLASS*** 250 ML IV PRN (21:24)
[2023-03-10] MEDS ORDERED: Heparin 25,000 units/D5W: USE ORDER SET PROTO 25,000 UNITS/250 ML BAG IV SCH (21:30)
[2023-03-10] MEDS ORDERED: HEPARIN 5000 UNITS/0.5 ML (HIGH RISK MED) ONE (21:53)
[2023-03-10] MEDS ORDERED: Heparin 25,000 units/D5W: USE ORDER SET PROTO 25,000 UNITS/250 ML BAG IV ONE (21:54)
[2023-03-10] MEDS ORDERED: Ntg 0.2MG/Ml in D5W GLASS*** 250 ML IV ONE (21:54)
[2023-03-10 21:56] LABS: PROTIME 10.9 SECONDS (9.4-12.5); PTT 25.3 SECONDS (25.1-36.5)
[2023-03-10 22:07] VITALS: PULSE 85
[2023-03-10 22:18] VITALS: O2SAT 96
[2023-03-10 22:31] VITALS: BP 120/85; RESP 20
--- NOTE | 2023-03-11 08:56 | XRAY ---
Indication: Pain. Elevated d-dimer. Multiple contiguous axial images obtained through the chest using 100 cc Isovue 370 contrast and PE protocol. Comparison: May 02, 2021 Good opacification of the pulmonary arteries to include the lobar and segmental branches. Again no pulmonary embolus. Heart not enlarged. Aorta is normal in course and caliber. Stable small left hilar calcified nodes. No pathologic mediastinal/hilar lymphadenopathy. Stable small hiatal hernia. Lungs demonstrates minimal bilateral dependent atelectasis. No suspicious pulmonary mass/nodule, consolidation, effusion, or pneumothorax. Bony thorax intact with stable L1 bone island. Limited upper abdomen again demonstrates fatty liver, fatty replaced pancreas, and splenic calcified granulomas. Impression: 1. Continued negative pulmonary embolus. No acute cardiopulmonary abnormalities. 2. Again chronic findings including small hiatal hernia, fatty liver, L1 bone island, and old granulomatous disease.
== END 2023-03-10 22:20 | disposition short-term general hospital (02) ==
LOC: ED 17:59
DX: I21.4 Non-ST elevation (NSTEMI) myocardial infarction (principal); I24.9 Acute ischemic heart disease, unspecified; R77.8 Other specified abnormalities of plasma proteins; R07.9 Chest pain, unspecified; I10 Essential (primary) hypertension; E11.9 Type 2 diabetes mellitus without complications; Z79.84 Long term (current) use of oral hypoglycemic drugs; Z79.899 Other long term (current) drug therapy
CPT/HCPCS: 36000; 36415; 71260; 80053; 83880; 84484; 85025; 85379; 85610; 85730; 93005; 93041; 94760; 96374; 96375; 99285; 99291; 99292; J1200; J1644; J2930; A9270-GY